=== PATIENT | female | born 1950 | race Caucasian/White ===

== ENCOUNTER → 2016-12-07 | Outpatient (CLI) | payer MEDICARE, BC ==
--- NOTE | 2016-12-07 16:45 | XR ---
EXAMINATION TYPE: XR lumbar spine 2 or 3V DATE OF EXAM: 12/07/2016 COMPARISON: NONE HISTORY: Back pain TECHNIQUE: 3 views FINDINGS: The vertebra have normal alignment. Posterior elements are intact. Abdominal aorta is ather omatous. Sacroiliac joints appear intact. There are clips from cholecystectomy. There is 20% anterior wedging of T12 vertebra. CONCLUSION: Compression fracture of T12 appears new compared to chest CT scan of 07/31/2013. This is probably an a cute fracture.
== END | disposition home or self-care (01) ==
LOC: RADMRIMAIN 16:08
PROVIDERS: ATTEND Physician Assistant
DX: S22.089A Unspecified fracture of T11-T12 vertebra, initial encounter for closed fracture (principal)
CPT/HCPCS: 72100

== ENCOUNTER 2017-08-05 11:43 | Inpatient (IN) | payer MEDICARE ==
[2017-08-05 12:07] LABS: Glucose,Whole Blood 77 mg/dL (75-99)
[2017-08-05] MEDS ORDERED: SODIUM CHLORIDE 0.9% 1,000 ML IV STA (12:09)
--- NOTE | 2017-08-05 12:20 | ED ---
General Adult HPI - General Chief complaint: Neuro Symptoms/Deficit Stated complaint: poss TIA Time Seen by Provider: 08/05/17 12:03 Source: patient, family, RN notes reviewed Mode of arrival: wheelchair Limitations: no limitations - History of Present Illness Initial comments: Patient is a pleasant 8 he 7-year-old female presenting to the emergency department with concerns of stroke. Onset of symptoms was or Saturday. Symptoms may have somewhat worsened yesterday or today. Patient did have a headache either or Saturday however states it was no worse than a routine headache. No headache at this time. Patient has noticed her speech has been off. Patient is having some difficulty using her right arm. Patient has having some difficulty with walking that started yesterday. Family states she is leaning towards the right side. - Related Data Allergies Allergy/AdvReac Type Severity Reaction Status Date / Time sulfamethoxazole Allergy Unknown Verified 08/05/17 11:45 [From Bactrim] trimethoprim [From Bactrim] Allergy Unknown Verified 08/05/17 11:45 Review of Systems ROS Statement: Those systems with pertinent positive or pertinent negative responses have been documented in the HPI. ROS Other: All systems not noted in ROS Statement are negative. Constitutional: Denies: fever Eyes: Denies: eye pain ENT: Denies: ear pain, throat pain Respiratory: Denies: cough Cardiovascular: Denies: chest pain Endocrine: Denies: fatigue Gastrointestinal: Denies: abdominal pain Genitourinary: Denies: dysuria Musculoskeletal: Denies: back pain Skin: Denies: rash Neurological: Reports: headache (Resolved), weakness, abnormal gait. Denies: confusion Past Medical History Past Medical History: CVA/TIA, Diabetes Mellitus, Hyperlipidemia, Hypertension, Thyroid Disorder Additional Past Medical History / Comment(s): throat cancer History of Any Multi-Drug Resistant Organisms: None Reported Past Surgical History: Cholecystectomy, Tonsillectomy Additional Past Surgical History / Comment(s): carotid endarectomy Past Psychological History: Anxiety, Depression Smoking Status: Former smoker Past Alcohol Use History: Rare Past Drug Use History: None Reported General Exam Limitations: no limitations General appearance: alert, in no apparent distress Head exam: Present: atraumatic Eye exam: Present: normal appearance, PERRL, EOMI ENT exam: Present: normal oropharynx Neck exam: Present: normal inspection Respiratory exam: Present: normal lung sounds bilaterally Cardiovascular Exam: Present: regular rate, normal rhythm, systolic murmur GI/Abdominal exam: Present: soft. Absent: tenderness Extremities exam: Present: normal inspection Neurological exam: Present: alert, CN II-XII intact (Except for right facial droop). Absent: motor sensory deficit Expanded Neurological exam: Present: protecting the airway, other (Slurred speech) Patient oriented to: Present: person, place, time Cranial nerves: EOM's Intact: Normal, Facial Sensation: Normal Cerebellar function: Finger to Nose: Abnormal Right, Abnormal Left Motor strength exam: RUE: 4, LUE: 5, RLE: 4, LLE: 5 Eye Response: (4) open spontaneously Motor Response: (6) obeys commands Verbal Response: (5) oriented Psychiatric exam: Present: normal affect, normal mood Skin exam: Present: normal color Course Vital Signs 08/05/17 11:45 Temperature 98 F Pulse Rate 99 Respiratory 20 Rate Blood Pressure 90/53 O2 Sat by Pulse 98 Oximetry EKG Findings - EKG Comments: EKG Findings:: Normal sinus rhythm 93. NC 16. QRS 152. QT 416. QTC 517. Bundle-branch block. Normal axis. Nonspecific ST-T. Medical Decision Making - Medical Decision Making Patient reevaluated and resting comfortably in bed, unchanged. Patient and family updated on results and plan. Case was discussed in detail with Dr. Goodman , who will admit for Dr. Yang. - Lab Data Result diagrams: 08/05/17 12:03 08/05/17 12:03 Lab Results 08/05/17 08/05/17 08/05/17 Range/Units 11:59 12:03 12:03 WBC 22.3 H (3.8-10.6) k/uL RBC 3.84 (3.80-5.40) m/uL Hgb 9.7 L (11.4-16.0) gm/dL Hct 29.1 L (34.0-46.0) % MCV 75.6 L (80.0-100.0) fL MCH 25.3 (25.0-35.0) pg MCHC 33.5 (31.0-37.0) g/dL RDW 14.4 (11.5-15.5) % Plt Count 374 (150-450) k/uL Neutrophils % 89 % Lymphocytes % 2 % Monocytes % 5 % Eosinophils % 1 % Basophils % 0 % Neutrophils # 19.8 H (1.3-7.7) k/uL Lymphocytes # 0.5 L (1.0-4.8) k/uL Monocytes # 1.2 H (0-1.0) k/uL Eosinophils # 0.3 (0-0.7) k/uL Basophils # 0.1 (0-0.2) k/uL Manual Slide Review Performed Toxic Granulation Present Poikilocytosis (manual Present Microcytosis Slight PT (9.0-12.0) sec INR (<1.2) APTT (22.0-30.0) sec Sodium (137-145) mmol/L Potassium (3.5-5.1) mmol/L Chloride (98-107) mmol/L Carbon Dioxide (22-30) mmol/L Anion Gap mmol/L BUN (7-17) mg/dL Creatinine (0.52-1.04) mg/dL Est GFR (CKD-EPI)AfAm (>60 ml/min/1.73 sqM) Est GFR (CKD-EPI)NonAf (>60 ml/min/1.73 sqM) Glucose (74-99) mg/dL POC Glucose (mg/dL) 77 (75-99) mg/dL POC Glu [employer] ID Marysol Long Calcium (8.4-10.2) mg/dL Total Bilirubin (0.2-1.3) mg/dL AST (14-36) U/L ALT (9-52) U/L Alkaline Phosphatase (38-126) U/L Total Creatine Kinase 604 H (30-135) U/L CK-MB (CK-2) 10.7 H* (0.0-2.4) ng/mL CK-MB (CK-2) Rel Index 1.8 Troponin I 0.048 H* (0.000-0.034) ng/mL Total Protein (6.3-8.2) g/dL Albumin (3.5-5.0) g/dL 08/05/17 08/05/17 Range/Units 12:03 12:03 WBC (3.8-10.6) k/uL RBC (3.80-5.40) m/uL Hgb (11.4-16.0) gm/dL Hct (34.0-46.0) % MCV (80.0-100.0) fL MCH (25.0-35.0) pg MCHC (31.0-37.0) g/dL RDW (11.5-15.5) % Plt Count (150-450) k/uL Neutrophils % % Lymphocytes % % Monocytes % % Eosinophils % % Basophils % % Neutrophils # (1.3-7.7) k/uL Lymphocytes # (1.0-4.8) k/uL Monocytes # (0-1.0) k/uL Eosinophils # (0-0.7) k/uL Basophils # (0-0.2) k/uL Manual Slide Review Toxic Granulation Poikilocytosis (manual Microcytosis PT 13.4 H (9.0-12.0) sec INR 1.4 H (<1.2) APTT 27.3 (22.0-30.0) sec Sodium 126 L (137-145) mmol/L Potassium 4.5 (3.5-5.1) mmol/L Chloride 92 L (98-107) mmol/L Carbon Dioxide 14 L (22-30) mmol/L Anion Gap 20 mmol/L BUN 41 H (7-17) mg/dL Creatinine 1.40 H (0.52-1.04) mg/dL Est GFR (CKD-EPI)AfAm 45 (>60 ml/min/1.73 sqM) Est GFR (CKD-EPI)NonAf 39 (>60 ml/min/1.73 sqM) Glucose 62 L (74-99) mg/dL POC Glucose (mg/dL) (75-99) mg/dL POC Glu [employer] ID Calcium 9.8 (8.4-10.2) mg/dL Total Bilirubin 1.8 H (0.2-1.3) mg/dL AST 55 H (14-36) U/L ALT 36 (9-52) U/L Alkaline Phosphatase 150 H (38-126) U/L Total Creatine Kinase (30-135) U/L CK-MB (CK-2) (0.0-2.4) ng/mL CK-MB (CK-2) Rel Index Troponin I (0.000-0.034) ng/mL Total Protein 6.3 (6.3-8.2) g/dL Albumin 3.5 (3.5-5.0) g/dL - Radiology Data Radiology results: report reviewed (Computed tomography scan the brain shows no acute hemorrhage. Encephalomalacia from old left-sided infarct is present.), image reviewed (Chest x-ray shows no acute process) Disposition Clinical Impression: Cerebrovascular accident, Hyponatremia, Renal insufficiency Disposition: ADMITTED IP TO THIS [facility] Condition: Serious Is patient prescribed a controlled substance at d/c from ED?: No Referrals: Nikko Yang DO [Primary Care Provider] - 1-2 days Decision Time: 14:52
--- NOTE | 2017-08-05 12:34 | CT ---
EXAMINATION TYPE: CT brain wo con DATE OF EXAM: 08/05/2017 COMPARISON: NONE HISTORY: Rt sided weakness, GALLAGHER, slurred speech CT DLP: 942.2 mGycm Automated exposure control for dose reduction was used. TECHNIQUE: CT scan of the head is performed without contrast. FINDINGS: There is no acute intracranial hemorrhage, mass effect, or midline shift identified. There is enceph alomalacia and CSF attenuated old lacunar injury of the left coker radiata, anterior limb of the lef t internal capsule, left external capsule, and lentiform nucleus at its anterior margin with volume l oss indicating chronicity as there is ex vacuo dilatation of the anterior horn the left lateral ventr icle. No suspicious extra axial fluid collection is present. The ventricles and sulci are within norm al limits in size. The globes are intact. The frontal sinuses are hypoplastic and the remaining visu alized sinuses are clear. Atherosclerosis is seen of the intracranial vasculature. IMPRESSION: No acute intracranial hemorrhage, mass effect, or midline shift is seen. Encephalomalacia from old le ft-sided infarct as described above.
[2017-08-05 12:43] LABS: INR 1.4 (<1.2)
[2017-08-05 12:44] LABS: Basophils # (A) 0.1 k/uL (0-0.2); Basophils % (A) 0 %; Eosinophils # (A) 0.3 k/uL (0-0.7); Eosinophils % (A) 1 %; HCT 29.1 % (34.0-46.0); HGB 9.7 gm/dL (11.4-16.0); Lymphocytes # (A) 0.5 k/uL (1.0-4.8); Lymphocytes % (A) 2 %; MCH 25.3 pg (25.0-35.0); MCHC 33.5 g/dL (31.0-37.0); MCV 75.6 fL (80.0-100.0); Microcytosis Slight; Monocytes # (A) 1.2 k/uL (0-1.0); Monocytes % (A) 5 %; Neutrophils # (A) 19.8 k/uL (1.3-7.7); Neutrophils % (A) 89 %; Partial Thromboplastin Time 27.3 sec (22.0-30.0); Platelet Count 374 k/uL (150-450); Prothrombin Time 13.4 sec (9.0-12.0); RBC 3.84 m/uL (3.80-5.40); RDW 14.4 % (11.5-15.5); WBC 22.3 k/uL (3.8-10.6)
[2017-08-05 12:46] LABS: Albumin 3.5 g/dL (3.5-5.0); Calcium 9.8 mg/dL (8.4-10.2); Potassium 4.5 mmol/L (3.5-5.1); Total Bilirubin 1.8 mg/dL (0.2-1.3); Total Protein 6.3 g/dL (6.3-8.2)
[2017-08-05 12:55] LABS: Poikilocytosis (M) Present; Toxic Granulation Present
--- NOTE | 2017-08-05 13:06 | XR ---
EXAMINATION TYPE: XR chest 2V DATE OF EXAM: 08/05/2017 COMPARISON: 07/05/2014 HISTORY: Altered mental status TECHNIQUE: Frontal and lateral views of the chest are obtained. FINDINGS: There is no focal air space opacity, pleural effusion, or pneumothorax seen. The cardiac silhouette size is within normal limits. The osseous structures are intact. Degenerative changes of the spine and shoulder joints are similar to the prior. IMPRESSION: No acute cardiopulmonary process.
[2017-08-05 13:15] LABS: Creatine Kinase MB 10.7 ng/mL (0.0-2.4)
[2017-08-05 13:16] LABS: Troponin I 0.048 ng/mL (0.000-0.034)
[2017-08-05] MEDS ORDERED: ASPIRIN 325 MG TAB PO STA (14:52)
--- NOTE | 2017-08-05 15:50 | US ---
EXAMINATION TYPE: US carotid duplex BILAT DATE OF EXAM: 08/05/2017 COMPARISON: NONE CLINICAL HISTORY: Stenosis: slurred speech x 4 days; prior left carotid endarterectomy 2012 per sanchez black. EXAM MEASUREMENTS: RIGHT: Peak Systolic Velocity (PSV) cm/sec ----- Right CCA: 56.6 ----- Right ICA: 421.0 ----- Right ECA: 208.8 ICA/CCA ratio: 7.4 RIGHT: End Diastole cm/sec ----- Right CCA: 23.1 ----- Right ICA: 175.1 ----- Right ECA: 55.5 LEFT: Peak Systolic Velocity (PSV) cm/sec ----- Left CCA: 75.8 ----- Left ICA: 68.5 ----- Left ECA: 82.7 prox ICA/CCA ratio: 0.9 LEFT: End Diastole cm/sec ----- Left CCA: 22.5 ----- Left ICA: 24.5 ----- Left ECA: 21.9 VERTEBRALS (direction of flow): Right Vertebral: Antegrade Left Vertebral: Antegrade Rhythm: Normal Abnormally elevated PSV and EDV is present in Right ICA bulb and proximally at irregular, hyperechoic wall plaque resulting in abnormally elevated Right ICA/ECA ratio; Abnormally elevated PSV >125cm/sec is also noted in Right ECA proximally at wall plaque. Dr Dunne, in EC, was notified of tech findings at exam's end. JJ IMPRESSION: 1. High-grade stenosis within the right internal carotid artery and carotid bulb with stenosis of gre ater than 70%. Further degree of occlusion could be assessed with nonemergent CTA prior to potential surgical intervention. 2. No hemodynamically significant stenosis within the left visualized internal carotid arterial syste m.
[2017-08-05] MEDS: SODIUM CHLORIDE 0.9% 1,000 ML IV SCH (15:51)
[2017-08-05 16:33] VITALS: BMI 31.1
[2017-08-05 16:45] LABS: Glucose,Whole Blood 71 mg/dL (75-99)
[2017-08-05] MEDS ORDERED: NAPROXEN 250 MG TAB PO PRN (17:43)
[2017-08-05] MEDS ORDERED: HYDROCHLOROTHIAZIDE 25 MG TAB PO PRN (17:43)
[2017-08-05] MEDS ORDERED: clonazePAM 1 MG TAB PO PRN (17:43)
[2017-08-05] MEDS ORDERED: LEVOFLOXACIN 500MG-D5W PMX 500 MG in DEXTROSE/WATER 1 100ML.BAG IVPB SCH (19:00)
[2017-08-05] MEDS: LEVOFLOXACIN 500MG-D5W PMX 500 MG in DEXTROSE/WATER 1 100ML.BAG IVPB SCH (20:26)
[2017-08-05] MEDS: AMITRIPTYLINE HCL 50 MG TAB PO SCH (20:27)
[2017-08-05] MEDS: HEPARIN SODIUM,PORCINE 5,000 UNIT/ML 1 ML VIAL SQ SCH (20:27)
[2017-08-05] MEDS: GABAPENTIN 100 MG CAP PO SCH (20:27)
[2017-08-05 20:37] LABS: Glucose,Whole Blood 72 mg/dL (75-99)
--- NOTE | 2017-08-05 20:57 | P.CNNES ---
History of Present Illness Consult date: 08/05/17 Reason for Consult: Patient admitted with right sided weakness and slurred speech. History of Present Illness: This patient is a 67-year-old right-handed white female who was brought into the emergency room at [facility] for evaluation of right-sided weakness and slurred speech. Patient states that her symptoms started on or Saturday of this past week. She did not think to come earlier as she felt her symptoms were going to get better. Apparently her sister came to see her as she noticed that when she was speaking to her on the phone she seemed to be disoriented and had severe slurring of her speech. The sister came over and found her on the floor leaning to her right side. She was able to assist her up to the chair and it was decided she should come to the emergency room for further evaluation. At home she was having difficulty not only with her speech but right-sided arm weakness. According to the patient she has a history of a stroke which she suffered in 2007. This did leave her with some residual right- sided weakness. She was brought into the emergency room at [facility] and was evaluated by Dr. Dunne. Computed tomography scan of the brain was ordered and results were reviewed. CAT scan report indicates no acute intracranial hemorrhage or mass effect. There was encephalomalacia on the left side of the brain felt to reflect and old infarct. This would: Side with her history of stroke in 2007. Patient states that she also has a history of underlying throat cancer which she is being followed up with Dr. Raymond. On further questioning she also has a history of having undergone right carotid endarterectomy in the past. She thinks Dr. Bishop was scar vascular surgeon at the time. The patient was sent for a carotid Doppler ultrasound today as well. Results indicate a high-grade stenosis of the right internal carotid artery and carotid bulb greater than 70%. Vascular surgery has been consulted. The patient is examined today on the medical floor. She is resting comfortably. She does appear to have some degree of dysphagia and dysarthric speech. According to the sister who was present at bedside this is a big change for her speech and language. She also noted that she was having difficulty using her right side at home. The patient has been taking 1 full adult aspirin daily for secondary stroke prevention. Her stroke risk factors include hypertension, hyperlipidemia, and diabetes mellitus. The patient is now admitted and neurology has been consulted for further evaluation and recommendations. Review of Systems Constitutional: Denies chills, Denies fever Eyes: denies blurred vision, denies pain Ears, nose, mouth and throat: Denies headache, Denies sore throat Cardiovascular: Denies chest pain, Denies shortness of breath Respiratory: Denies cough Gastrointestinal: Denies abdominal pain, Denies diarrhea, Denies nausea, Denies vomiting Genitourinary: Denies dysuria, Denies hematuria Musculoskeletal: Denies myalgias Integumentary: Denies pruritus, Denies rash Neurological: Reports aphasia, Reports change in mentation, Reports change in speech, Reports gait dysfunction, Reports headaches, Reports motor disturbance, Denies numbness, Denies weakness Psychiatric: Denies anxiety, Denies depression Endocrine: Denies fatigue, Denies weight change Past Medical History Past Medical History: CVA/TIA, Diabetes Mellitus, Hyperlipidemia, Hypertension, Thyroid Disorder Additional Past Medical History / Comment(s): throat cancer History of Any Multi-Drug Resistant Organisms: None Reported Past Surgical History: Cholecystectomy, Tonsillectomy Additional Past Surgical History / Comment(s): carotid endarectomy Past Anesthesia/Blood Transfusion Reactions: No Reported Reaction Past Psychological History: Anxiety, Depression Smoking Status: Former smoker Past Alcohol Use History: Rare Past Drug Use History: None Reported - Past Family History Mother Family Medical History: Cancer Additional Family Medical History / Comment(s): CERVICAL CA. Father Family Medical History: Myocardial Infarction (NM) Medications and Allergies Home Medications Medication Instructions Recorded Confirmed Type Amitriptyline HCl [Elavil] 50 mg PO HS 08/05/17 08/05/17 History Aspirin 325 mg PO DAILY 08/05/17 08/05/17 History FLUoxetine HCL [PROzac] 20 mg PO DAILY 08/05/17 08/05/17 History Gabapentin [Neurontin] 100 mg PO TID 08/05/17 08/05/17 History Gemfibrozil [Lopid] 600 mg PO AC-BID 08/05/17 08/05/17 History Hydrochlorothiazide [Hydrodiuril] 25 mg PO DAILY PRN 08/05/17 08/05/17 History Levothyroxine Sodium 125 mcg PO DAILY 08/05/17 08/05/17 History Lisinopril [Zestril] 5 mg PO DAILY 08/05/17 08/05/17 History Metoprolol Succinate [Toprol XL] 25 mg PO DAILY 08/05/17 08/05/17 History Naproxen [Naprosyn] 500 mg PO Q12HR PRN 08/05/17 08/05/17 History Pantoprazole Sodium 40 mg PO DAILY 08/05/17 08/05/17 History clonazePAM [Clonazepam] 2 mg PO BID PRN 08/05/17 08/05/17 History Allergies Allergy/AdvReac Type Severity Reaction Status Date / Time sulfamethoxazole Allergy Unknown Verified 08/05/17 15:22 [From Bactrim] trimethoprim [From Bactrim] Allergy Unknown Verified 08/05/17 15:22 Physical Examination - Vital Signs Vital Signs: Vital Signs Temp Pulse Pulse Resp BP BP Pulse Ox 08/05/17 16:20 96.7 F L 77 18 102/51 97 08/05/17 16:06 78 16 101/53 98 08/05/17 14:59 78 16 90/54 98 08/05/17 11:45 98 F 99 20 90/53 98 Intake and Output 08/05/17 08/05/17 08/05/17 06:59 14:59 22:59 Other: # Voids 1 Weight 77.111 kg 77.111 kg - Constitutional General appearance: average body habitus, cooperative - EENT EENT: PERRL, mucous membranes moist - Respiratory Respiratory: lungs clear, normal breath sounds - Cardiovascular Cardiovascular: regular rate, normal S1, normal S2 Extremities: no peripheral edema bilaterally - Gastrointestinal Gastrointestinal: normoactive bowel sounds - Integumentary Integumentary: normal - Neurologic Cranial nerve examination: PERRL, EOMI, VFF, V1/V2/V3 grossly intact, face symmetric, tongue midline, intact gag reflex, intact corneal reflex, normal palatal elevation Speech examination: intact Sensorimotor examination: intact Motor examination - right side: 3/5: biceps, triceps, wrist flexion, wrist extension, tag marker, hip flexors, knee extensors, dorsiflexion, toe extension (EHL) , plantarflexion Motor examination - left side: 4/5: biceps, triceps, wrist flexion, wrist extension, tag marker, hip flexors, knee extensors, dorsiflexion, toe extension (EHL) , plantarflexion Detailed sensory examination: intact Reflex and gait examination: intact Reflexes: 1+: ankle, bicep, knee, tricep - Musculoskeletal Musculoskeletal: no pain - Psychiatric Psychiatric: mood/affect appropriate, cooperative Results - Laboratory Findings CBC and BMP: 08/05/17 12:03 08/05/17 12:03 Abnormal Lab Findings: Abnormal Labs 08/05/17 08/05/17 08/05/17 12:03 12:03 12:03 WBC 22.3 H Hgb 9.7 L Hct 29.1 L MCV 75.6 L Neutrophils # 19.8 H Lymphocytes # 0.5 L Monocytes # 1.2 H PT INR Sodium 126 L Chloride 92 L Carbon Dioxide 14 L BUN 41 H Creatinine 1.40 H Glucose 62 L POC Glucose (mg/dL) Total Bilirubin 1.8 H AST 55 H Alkaline Phosphatase 150 H Total Creatine Kinase 604 H CK-MB (CK-2) 10.7 H* Troponin I 0.048 H* 08/05/17 08/05/17 12:03 16:42 WBC Hgb Hct MCV Neutrophils # Lymphocytes # Monocytes # PT 13.4 H INR 1.4 H Sodium Chloride Carbon Dioxide BUN Creatinine Glucose POC Glucose (mg/dL) 71 L Total Bilirubin AST Alkaline Phosphatase Total Creatine Kinase CK-MB (CK-2) Troponin I Assessment and Plan (1) Acute ischemic left MCA stroke Current Visit: Yes Status: Acute Code(s): I63.512 - CEREB INFRC D/T UNSP OCCLS OR STENOS OF LEFT MID CEREB ART SNOMED Code(s): 008534712 (2) Dysphasia Current Visit: Yes Status: Acute Code(s): R47.02 - DYSPHASIA SNOMED Code(s ): 11217932 (3) Hyponatremia Current Visit: Yes Status: Acute Code(s): E87.1 - HYPO-OSMOLALITY AND HYPONATREMIA SNOMED Code(s): 06086323 (4) Renal insufficiency Current Visit: Yes Status: Acute Code(s): N28.9 - DISORDER OF KIDNEY AND URETER, UNSPECIFIED SNOMED Code(s): 445339758 Plan: This patient is a 67-year-old female who was brought into the emergency room today for evaluation of slurred speech and right-sided weakness. Patient's sister found her at home and noted the significant change in her speech and language. She was also leaning and appeared to be weak on her right upper extremity. She was brought into the emergency room at [facility] and was evaluated by Dr. Dunne in the ER. She underwent a computed tomography scan of the brain results of which are noted above. Patient also underwent carotid Doppler ultrasound results are as noted above. The patient was up slowly admitted to the hospital for a full stroke evaluation. She has a history of having suffered a previous stroke in 2007. This left her with residual right-sided weakness which apparently had significantly improved over the years. She is now admitted for further stroke evaluation. Her neurological examination reveals her to have right-sided pronator drift as well as dysarthric speech. Her clinical history suggests possibility of a new area of infarction involving the left hemisphere of the brain. We have recommended a complete stroke evaluation for the patient including MRI of the brain. Vascular surgery has been consulted for further evaluation of significant carotid artery stenosis. We would recommend the patient be continued on current dose of aspirin daily for secondary stroke prevention pending her MRI results to be reviewed tomorrow. Her overall prognosis at this time remains guarded. We will continue close neurological follow-up for the patient during this admission. Time with Patient: Greater than 30
--- NOTE | 2017-08-05 21:06 | HP ---
HISTORY AND PHYSICAL CHIEF COMPLAINTS: Weakness of the right side of the body and possible stroke. HISTORY OF PRESENT ILLNESS: This 67-year-old woman with a past medical history of multiple medical problems including history of CVA, TIA, history of diabetes type 2, hypertension, hyperlipidemia, hypothyroidism, throat cancer, history of anxiety, depression being followed by Dr. Ary Yang in the outpatient setting was noted to have some change in mental status and significant weakness on the right side which progressed for the last couple of days. The patient also complains of headache and because of multiple symptomatology, patient was taken to [facility] and was admitted for further evaluation and treatment. The patient underwent a CT scan of the brain that showed significant encephalomalacia on the left side indicating old left-sided infarct and the patient admitted for further evaluation and treatment. A carotid Doppler study was also done which showed high-grade stenosis of the right internal carotid artery and carotid bulb and carotid stenosis greater than 70%. There is no history of fever, rigors or chills. No history of headache, loss of consciousness or seizures. The patient is slightly dysarthric at this time. The patient did have multiple lab abnormalities on admission at this time. PAST MEDICAL HISTORY: History of stroke, history of diabetes mellitus, hypertension, hyperlipidemia, hypothyroidism, history of throat cancer. MEDICATIONS: Prior to admission include home medications are: 1. Clonazepam 2 mg b.i.d. p.r.n. 2. Naprosyn 500 mg b.i.d. p.r.n. 3. Lopid 600 mg b.i.d. 4. Aspirin 320 mg daily. 5. Elavil 50 mg q.h.s. 6. Protonix 40 mg daily. 7. Toprol-XL 25 mg p.o. daily. 8. Zestril 5 mg. 9. Levothyroxine 125 mcg p.o. daily. 10.HydroDIURIL 25 mg p.o. daily p.r.n. 11.Neurontin 100 mg t.i.d. 12.Prozac 20 mg p.o. daily. ALLERGIES: BACTRIM. FAMILY HISTORY: History of cervical cancer in the family. SOCIAL HISTORY: Previous history of smoking. No history of current smoking. No alcohol intake. REVIEW OF SYSTEMS: ENT: No diminished vision, no diminished hearing. Otherwise, as mentioned earlier. Cardiovascular: No angina. Respiratory: No cough or hemoptysis. GI no nausea or vomiting. : No dysuria. Nervous System: As mentioned earlier. Allergies/Immunology: No asthma or hayfever. MUSCULOSKELETAL: As mentioned earlier. HEMATOLOGY/ONCOLOGY: No history of anemia. Endocrine: No history of diabetes, hypothyroidism. CONSTITUTIONAL: As mentioned earlier. Dermatology: Negative. Rheumatology: Negative. Psychiatry: As mentioned earlier. PHYSICAL EXAMINATION: Alert and oriented x2. Dysarthric. Pulse 77. Blood pressure 102/51, respiration 18, temperature 98.7, pulse ox 97% on room air. HEENT: Conjunctivae normal. Oral mucosa moist. NECK is no jugular venous distention. No carotid bruit. No lymph node enlargement. CARDIOVASCULAR SYSTEM: S1, S2 muffled. RESPIRATORY: Breath sounds diminished in the bases. A few scattered rhonchi. No crackles. ABDOMEN: Soft, nontender. No mass palpable. LEGS: No edema and no swelling. NERVOUS SYSTEM: Higher functions as mentioned earlier, patient is slightly drowsy and slightly dysarthric. Otherwise, moves all 4 limbs but minimal weakness on the right side appreciated. Slurring of speech also present. Gait not tested. SKIN no ulcers, rashes or bleeding. LYMPHATICS: No lymph nodes palpable in the neck, axillae or groin. JOINTS: No active deforming arthropathy. LAB STUDIES: WBC 20.3, hemoglobin is 10.7, creatinine is 1.4. ASSESSMENT: 1. Possible acute stroke involving the left hemisphere causing right-sided weakness. 2. Change in mental status, metabolic encephalopathy. 3. Old left stroke. 4. High-grade stenosis of the right internal carotid artery at up to 70%. 5. History of diabetes type 2. 6. Hypertension. 7. Hyperlipidemia. 8. Increased WBC. 9. Hypothyroidism. 10.History of throat cancer. 11.History of cholecystectomy. 12.History of anxiety/depression. 13.History of carotid endarterectomy. 14.Remote history of nicotine dependence. RECOMMENDATIONS AND DISCUSSION: In this 67-year-old woman who presented with multiple complex medical issues, we will monitor the patient closely. Continue the current medications, management and symptomatic treatment. I would recommend antiplatelet agents. Neurology consultation. I would also recommend empiric antibiotics. Neuro checks. The overall prognosis is extremely guarded because of multiple complex medical issues and DVT prophylaxis. Further recommendations to follow. I would also recommend UA with micro also. A copy of dictation being forwarded to Dr. Ary Yang. Medication reconciliation. See orders for details. Once again, the prognosis guarded. We will also get a vascular consultation for carotid stenosis as well. MMODL / IJN: [id number] /
[2017-08-05 21:47] LABS: Appearance,Urine Turbid (Clear); Bilirubin,Urine Negative (Negative); Blood,Urine Large (Negative); Color,Urine Yellow; Glucose,Urine (UA) Negative (Negative); Ketones,Urine Negative (Negative); Leukocyte Esterase,Urine Large (Negative); Nitrite,Urine Negative (Negative); Protein,Urine 1+ (Negative); RBC,Urine 59 /hpf (0-5); Specific Gravity,Urine 1.011 (1.001-1.035); Urobilinogen,Urine <2.0 mg/dL (<2.0); WBC,Urine >182 /hpf (0-5)
[2017-08-05 21:56] LABS: Amphetamine Screen,Urine Not Detected (NotDetected); Barbiturate Screen,Urine Not Detected (NotDetected); Benzodiazepines Screen,Urine Not Detected (NotDetected); Cocaine Screen,Urine Not Detected (NotDetected); Methadone Screen, Urine Not Detected (NotDetected); Opiate Screen,Urine Detected (NotDetected); Oxycodone Screen, Urine Not Detected (NotDetected); Phencyclidine Screen,Urine Not Detected (NotDetected); Tricyclic Antidepressant,Urine Detected (NotDetected); Urn Cannabinoid Scrn Not Detected (NotDetected)
[2017-08-06 00:25] LABS: Troponin I 0.033 ng/mL (0.000-0.034)
[2017-08-06 00:26] LABS: Creatine Kinase MB 9.3 ng/mL (0.0-2.4)
[2017-08-06 05:46] LABS: Glucose,Whole Blood 71 mg/dL (75-99)
[2017-08-06 06:22] LABS: Basophils % (A) 0 %; Eosinophils # (A) 0.3 k/uL (0-0.7); Eosinophils % (A) 2 %; HGB 8.8 gm/dL (11.4-16.0); Lymphocytes # (A) 0.5 k/uL (1.0-4.8); Lymphocytes % (A) 3 %; MCH 25.1 pg (25.0-35.0); MCHC 32.4 g/dL (31.0-37.0); MCV 77.4 fL (80.0-100.0); Mean Platelet Volume 6.4; Microcytosis Slight; Monocytes % (A) 6 %; Neutrophils # (A) 15.9 k/uL (1.3-7.7); Neutrophils % (A) 86 %; Platelet Count 312 k/uL (150-450); RBC 3.49 m/uL (3.80-5.40); RDW 15.3 % (11.5-15.5); WBC 18.4 k/uL (3.8-10.6)
[2017-08-06 06:40] LABS: Potassium 4.2 mmol/L (3.5-5.1)
[2017-08-06] MEDS: SODIUM CHLORIDE 0.9% 1,000 ML IV SCH ×2 (09:20→16:18)
--- NOTE | 2017-08-06 11:38 | P.CRDCN ---
History of Present Illness Consult date: 08/06/17 Requesting physician: Mani Redding Reason for Consult (text): CVA Chief complaint: Slurring of speech and right-sided weakness History of present illness: This is a 67-year-old female with history of prior CVA, diabetes, hypertension, hyperlipidemia, hypothyroidism, throat cancer, depression, who presented to the hospital with symptoms of significant expressive aphasia, slurring of speech, and right-sided weakness. Apparently the symptoms have been going on for the past couple of days prior to her admission here. Patient was also complaining of headache. CAT scan of the brain was performed which revealed significant encephalomalacia on the left side indicating old left- sided infarct and the patient was admitted for further evaluation and treatment. A carotid Doppler study was also performed which revealed high- grade stenosis of the right internal carotid artery and carotid, carotid stenosis greater than 70%. Cardiology consultation was requested to rule out cardiac source for her CVA. The pressure on arrival here 90/50, heart rate in the 90s, 98% on room air. White blood cell count 22.3 on arrival, 18.4 this morning. Hemoglobin 8.8, platelet count 312, sodium on admission 126, 127 this morning. Potassium 4.2, BUN 42, creatinine 1.6. Troponin 0.04, 0.03. Urine drug screen positive for opiates and antidepressants. At the time of my examination this morning, physical therapy had just been in working with the patient, she continues to have significant right-sided weakness as well as expressive aphasia and slurring of speech. Her EKG shows a normal sinus rhythm with a left bundle-branch block pattern. Past Medical History Past Medical History: CVA/TIA, Diabetes Mellitus, Hyperlipidemia, Hypertension, Thyroid Disorder Additional Past Medical History / Comment(s): throat cancer History of Any Multi-Drug Resistant Organisms: None Reported Past Surgical History: Cholecystectomy, Tonsillectomy Additional Past Surgical History / Comment(s): carotid endarectomy Past Anesthesia/Blood Transfusion Reactions: No Reported Reaction Past Psychological History: Anxiety, Depression Smoking Status: Former smoker Past Alcohol Use History: Rare Past Drug Use History: None Reported - Past Family History Mother Family Medical History: Cancer Additional Family Medical History / Comment(s): CERVICAL CA. Father Family Medical History: Myocardial Infarction ([place]) Medications and Allergies Home Medications Medication Instructions Recorded Confirmed Type Amitriptyline HCl [Elavil] 50 mg PO HS 08/05/17 08/05/17 History Aspirin 325 mg PO DAILY 08/05/17 08/05/17 History FLUoxetine HCL [PROzac] 20 mg PO DAILY 08/05/17 08/05/17 History Gabapentin [Neurontin] 100 mg PO TID 08/05/17 08/05/17 History Gemfibrozil [Lopid] 600 mg PO AC-BID 08/05/17 08/05/17 History Hydrochlorothiazide [Hydrodiuril] 25 mg PO DAILY PRN 08/05/17 08/05/17 History Levothyroxine Sodium 125 mcg PO DAILY 08/05/17 08/05/17 History Lisinopril [Zestril] 5 mg PO DAILY 08/05/17 08/05/17 History Metoprolol Succinate [Toprol XL] 25 mg PO DAILY 08/05/17 08/05/17 History Naproxen [Naprosyn] 500 mg PO Q12HR PRN 08/05/17 08/05/17 History Pantoprazole Sodium 40 mg PO DAILY 08/05/17 08/05/17 History clonazePAM [Clonazepam] 2 mg PO BID PRN 08/05/17 08/05/17 History Allergies Allergy/AdvReac Type Severity Reaction Status Date / Time sulfamethoxazole Allergy Unknown Verified 08/05/17 15:22 [From Bactrim] trimethoprim [From Bactrim] Allergy Unknown Verified 08/05/17 15:22 Physical Exam Vitals: Vital Signs Temp Pulse Pulse Resp BP BP Pulse Ox 08/06/17 09:10 93 18 08/06/17 09:00 96.9 F L 93 18 98/45 97 08/06/17 04:00 97.7 F 90 18 100/51 95 08/06/17 00:00 97.8 F 83 18 90/51 93 L 08/05/17 20:00 97.0 F L 80 18 94/56 96 08/05/17 16:20 96.7 F L 77 18 102/51 97 08/05/17 16:06 78 16 101/53 98 08/05/17 14:59 78 16 90/54 98 08/05/17 11:45 98 F 99 20 90/53 98 Intake and Output 08/05/17 08/06/17 08/06/17 22:59 06:59 14:59 Intake Total 600 Output Total 300 Balance -300 600 Intake: Intake, IV Titration 600 Amount Sodium Chloride 0.9% 1, 600 000 ml @ 75 mls/hr IV . [id number] [facility] Rx#:[id number] Output: Urine 300 Other: Voiding Method Bedside Commode Bedside Commode Bedside Commode # Voids 1 1 Weight 77.111 kg 74.6 kg PHYSICAL EXAMINATION: GENERAL: HEENT: Head is atraumatic, normocephalic. Pupils equal, round. Sclera anicteric. Conjunctiva are clear. Mucous membranes of the mouth are moist. Neck is supple. There is no elevated jugular venous pressure.] bruit is heard. HEART EXAMINATION: Heart S1, S2 normal. No murmur or gallop heard. CHEST EXAMINATION: Lungs are clear to auscultation and precussion. No chest wall tenderness is noted on palpation or with deep breathing. ABDOMEN: Soft, nontender. Bowel sounds are heard. No organomegaly noted. EXTREMITIES: 2+ peripheral pulses with no evidence of peripheral edema and no calf tenderness noted. NEUROLOGIC patient is awake, alert and oriented -3. Positive right sided weakness with mild slurring of speech. . Results 08/06/17 06:02 08/06/17 06:02 Cardiac Enzymes 08/05/17 08/05/17 08/05/17 Range/Units 12:03 12:03 23:18 AST 55 H (14-36) U/L CK-MB (CK-2) 10.7 H* 9.3 H* (0.0-2.4) ng/mL Troponin I 0.048 H* 0.033 (0.000-0.034) ng/mL Coagulation 08/05/17 Range/Units 12:03 PT 13.4 H (9.0-12.0) sec APTT 27.3 (22.0-30.0) sec Lipids 08/06/17 Range/Units 06:02 Triglycerides 215 H (<150) mg/dL Cholesterol 95 (<200) mg/dL HDL Cholesterol 12 L (40-60) mg/dL CBC 08/05/17 08/06/17 Range/Units 12:03 06:02 WBC 22.3 H 18.4 H (3.8-10.6) k/uL RBC 3.84 3.49 L (3.80-5.40) m/uL Hgb 9.7 L 8.8 L (11.4-16.0) gm/dL Hct 29.1 L 27.0 L (34.0-46.0) % Plt Count 374 312 (150-450) k/uL Comprehensive Metabolic Panel 08/05/17 08/06/17 Range/Units 12:03 06:02 Sodium 126 L 127 L (137-145) mmol/L Potassium 4.5 4.2 (3.5-5.1) mmol/L Chloride 92 L 96 L (98-107) mmol/L Carbon Dioxide 14 L 15 L (22-30) mmol/L BUN 41 H 42 H (7-17) mg/dL Creatinine 1.40 H 1.60 H (0.52-1.04) mg/dL Glucose 62 L 60 L (74-99) mg/dL Calcium 9.8 9.0 (8.4-10.2) mg/dL AST 55 H (14-36) U/L ALT 36 (9-52) U/L Alkaline Phosphatase 150 H (38-126) U/L Total Protein 6.3 (6.3-8.2) g/dL Albumin 3.5 (3.5-5.0) g/dL Current Medications Generic Name Dose Route Start Last Admin Trade Name Freq PRN Reason Stop Dose Admin Amitriptyline HCl 50 mg 08/05/17 21:00 08/05/17 20:27 Elavil PO 50 mg HS NORMAN Administration Aspirin 325 mg 08/06/17 09:00 Aspirin PO DAILY NORMAN Clonazepam 2 mg 08/05/17 17:43 Klonopin PO BID PRN Anxiety Fluoxetine HCl 20 mg 08/06/17 09:00 Prozac PO DAILY NORMAN Gabapentin 100 mg 08/05/17 22:00 08/05/17 20:27 Neurontin PO 100 mg TID NORMAN Administration Gemfibrozil 600 mg 08/06/17 07:30 Lopid PO AC-BID NORMAN Heparin Sodium (Porcine) 5,000 unit 08/05/17 21:00 08/05/17 20:27 Heparin SQ 5,000 unit Q12HR NORMAN Administration Hydrochlorothiazide 25 mg 08/05/17 17:43 Hydrodiuril PO DAILY PRN Edema Sodium Chloride 1,000 mls @ 75 mls/hr 08/05/17 15:00 08/06/17 09:20 Saline 0.9% IV Not Given .[id number] NORMAN Levofloxacin 500 mg/ IV 100 mls @ 100 mls/hr 08/05/17 20:00 08/05/17 20:26 Solution IVPB 100 mls/hr Q24H NORMAN Administration Levothyroxine Sodium 125 mcg 08/06/17 06:30 Synthroid PO 0630 NORMAN Lisinopril 5 mg 08/06/17 09:00 Zestril PO DAILY NORMAN Metoprolol Succinate 25 mg 08/06/17 09:00 Toprol Xl PO DAILY NORMAN Naproxen 500 mg 08/05/17 17:43 Naprosyn PO Q12HR PRN Pain Pantoprazole Sodium 40 mg 08/06/17 09:00 Protonix PO DAILY NORMAN Intake and Output 08/05/17 08/06/17 08/06/17 22:59 06:59 14:59 Intake Total 600 Output Total 300 Balance -300 600 Intake: Intake, IV Titration 600 Amount Sodium Chloride 0.9% 1, 600 000 ml @ 75 mls/hr IV . [id number] [facility] Rx#:[id number] Output: Urine 300 Other: Voiding Method Bedside Commode Bedside Commode Bedside Commode # Voids 1 1 Weight 77.111 kg 74.6 kg 08/06/17 06:02 08/06/17 06:02 EKG Interpretations (text) EKG shows a normal sinus rhythm with a right bundle branch block pattern Assessment and Plan Plan: Assessment and plan #1 symptoms of right-sided weakness and slurring of speech, possible acute left hemispheric CVA. Carotid Doppler study showed high-grade stenosis of the right internal carotid artery #2 history of prior CVA #3 hypertension #4 hyperlipidemia #5 hypothyroidism #6 diabetes #7 depression and anxiety Plan We will obtain an echocardiogram with Doppler study. We will also continue to monitor the patient for any evidence of atrial fibrillation. Further recommendations to follow. DNP note has been reviewed, I agree with a documented findings and plan of care. Patient was seen and examined.
[2017-08-06 11:40] LABS: Glucose,Whole Blood 64 mg/dL (75-99)
[2017-08-06 11:44] LABS: Glucose,Whole Blood 63 mg/dL (75-99)
[2017-08-06 11:55] LABS: Glucose,Whole Blood 81 mg/dL (75-99)
--- NOTE | 2017-08-06 12:06 | ECHOF ---
Referral Reason:Thrombus MEASUREMENTS -------- HEIGHT: 157.5 cm WEIGHT: 74.4 kg BP: 100/51 IVSd: 1.3 cm (0.6 - 1.1) LVIDd: 3.2 cm (3.9 - 5.3) LVPWd: 1.3 cm (0.6 - 1.1) IVSs: 1.6 cm LVIDs: 2.5 cm LVPWs: 1.3 cm LAESV Index (A-L): 27.41 ml/m Ao Diam: 3.0 cm (2.0 - 3.7) AV Cusp: 1.6 cm (1.5 - 2.6) LA Diam: 2.8 cm (2.7 - 3.8) MV E Doc: 1.02 m/s MV DecT: 355 ms MV A Doc: 1.18 m/s MV E/A Ratio: 0.87 AV maxP.67 mmHg AV meanP.07 mmHg FINDINGS -------- BBB This was a technically adequate study. The left ventricular size is normal. There is mild concentric left ventricular hypertrophy. Overa ll left ventricular systolic function is low-normal with, an EF between 50 - 55 %. The right ventricle is normal in size and function. Normal LA size by volume 22+/-6 ml/m2. The right atrium is normal in size. Aortic valve is trileaflet and is mildly thickened. There is no evidence of aortic regurgitation. There is no evidence of aortic stenosis. The mitral valve leaflets are mildly thickened. Mild mitral annular calcification present. Mild m itral regurgitation is present. Trace tricuspid regurgitation present. Right ventricular systolic pressure is normal at < 35 mmHg. There is no evidence of pulmonary hypertension. The pulmonic valve was not well visualized. The aortic root size is normal. Normal inferior vena cava with normal inspiratory collapse consistent with estimated right atrial pre ssure of 5 mmHg. There is no pericardial effusion. CONCLUSIONS -------- 1. BBB 2. This was a technically adequate study. 3. The left ventricular size is normal. 4. There is mild concentric left ventricular hypertrophy. 5. Overall left ventricular systolic function is low-normal with, an EF between 50 - 55 %. 6. Normal LA size by volume 22+/-6 ml/m2. 7. Aortic valve is trileaflet and is mildly thickened. 8. The mitral valve leaflets are mildly thickened. 9. Mild mitral annular calcification present. 10. Mild mitral regurgitation is present. 11. Trace tricuspid regurgitation present. 12. Right ventricular systolic pressure is normal at < 35 mmHg. 13. There is no evidence of pulmonary hypertension. 14. The pulmonic valve was not well visualized. 15. The aortic root size is normal. 16. There is no pericardial effusion. IT SERVICE CONTINUITY SUPERVISOR: Isra Lopez RDCS
--- NOTE | 2017-08-06 12:54 | MR ---
MR brain without contrast HISTORY: New left hemispheric stroke Multiplanar multisequence imaging through the brain Correlation to CT brain 28/10/2017 Again identified is encephalomalacia in the left frontal brain as previously noted corresponding ex v acuo phenomenon of the left lateral ventricle. There is no restricted diffusion to suggest subacute i schemia. There is no hemorrhage or hydrocephalus. Corpus callosum, cervical medullary junction, cereb ellopontine angles are within normal limits. There is a partially empty sella. The orbits show symmet machelle appearance. There are normal vascular flow voids present. Scattered hyperintensities are present within the subcortical, periventricular, pericallosal and ric-infarct regions compatible with scolio sis, probable chronic small vessel ischemia. Some inflammatory change also noted in the mastoid air c ells on the right. IMPRESSION: Age-related changes of atrophy and probable chronic small vessel ischemia. Evidence of pr evious infarction, cerebrovascular accident.
--- NOTE | 2017-08-06 14:40 | CONS ---
CONSULTATION This is a 67-year-old female, well known to me from the past. The patient had a left carotid endarterectomy done by me in 2007. The patient was in the office on March of 2017 and ultrasound showed left side 16 to 49, right side 50-70% stenosis. Patient had an episode of slurred speech and right hemiparesis with complete recovery. Patient had a CT scan of the brain which showed old infarct and also patient MRI which also showed old infarct with no evidence of acute intracranial hemorrhage or for any mass effect. The patient had ultrasound done at [facility] which showed right side is 70% stenosis, left side is 16 in 49% stenosis. SURGICAL HISTORY: Patient had a left carotid endarterectomy done in the past. The patient also was diagnosed with throat cancer in 2014 and she had the right side lymph node dissection and radiation to the neck in 2014. MEDICAL HISTORY: History of hypertension, diabetes, hyperlipidemia. EXAMINATION: Patient was seen in her room. NECK: Supple. She has a scar on the both side. T CENTRAL NERVOUS SYSTEM: Patient still has some slurred speech. Her motor functions are improving. CHEST: Clear to auscultation. ABDOMEN: Soft. Femoral pulses are present. PLAN: The patient was seen by neurology and the patient on antiplatelet therapy. Her symptoms came mostly from the left side affecting speech and right hemiparesis, but left side has no hemodynamically significant stenosis. The right side has 50-70% stenosis by ultrasound from my office and ultrasound at [facility] also showed 70% stenosis on the right side. I have discussed the case with the family and I will discuss with the Medicine and Neurology. This patient has a right-sided high-grade stenosis. The patient is asymptomatic from right side and the patient had radiation to the neck. Surgical indication is not indicated because of the radiation to the neck. If she needs right-sided carotid corrected she will need a carotid stent placement that will be done in at a tertiary center. We can arrange for that. We will follow with you. Thank you very much this consultation. MMODL / IJN: [id number] /
[2017-08-06 15:50] LABS: Hemoglobin A1C 5.6 % (4.0-6.0)
--- NOTE | 2017-08-06 16:07 | P.CONS ---
History of Present Illness - Chief Complaint Gait disturbance - History of Present Illness I had the opportunity to see patient for inpatient rehab consultation with regard to gait disturbance. She was admitted to [facility] August 05 with right- sided weakness, slurring of speech, found on floor by sister. Seen in consultation by Dr. Mita Mcclure and cardiology. Head CT demonstrates encephalomalacia and old left-sided infarct. Chest x-ray negative. Carotid Doppler with right internal carotid stenosis 70%. MRI with age-related and small vessel change only. PT reports moderate assistance for bed mobility and minimal assistance for transfers and gait 30 feet with roller walker. OT reports minimal assistance for upper dressing and moderate assistance for lower dressing, bathing, toileting, functional mobility and transfers. Speech therapy assessed swallow and recommend pured and thin liquids. Also significant cognitive deficits noted. Previous functional history as elicited from patient: 65-year-old right-handed white female who is single lives in one floor home with friend. Describes can be independent with own cooking, laundry, driving, shower. Denies tobacco or alcohol. States regular doctors Dr. Yang. Corroborated by facesheet. Review of Systems Review of systems: ENT: Denies sneezes or discharge. Eyes: Denies discharge or photophobia. Cardiac: Denies chest pain or palpitation. Pulmonary: Denies cough or shortness of breath. Breast: Denies discharge or lumps. Gastrointestinal: Denies nausea, emesis, constipation, diarrhea. Genitourinary: Denies discharge or frequency. Musculoskeletal: Denies muscle or bone aches. Neurologic: Confusion. Right-sided weakness reported. Endocrine: Denies shakes or sweats. Oncology: Denies cancers. Dermatologic: Denies rash, itching, pruritus. ALLERGY/immunology: Denies sneezes, rashes. Past Medical History Past Medical History: CVA/TIA, Diabetes Mellitus, Hyperlipidemia, Hypertension, Thyroid Disorder Additional Past Medical History / Comment(s): throat cancer History of Any Multi-Drug Resistant Organisms: None Reported Past Surgical History: Cholecystectomy, Tonsillectomy Additional Past Surgical History / Comment(s): carotid endarectomy Past Anesthesia/Blood Transfusion Reactions: No Reported Reaction Past Psychological History: Anxiety, Depression Smoking Status: Former smoker Past Alcohol Use History: Rare Past Drug Use History: None Reported - Past Family History Mother Family Medical History: Cancer Additional Family Medical History / Comment(s): CERVICAL CA. Father Family Medical History: Myocardial Infarction (PR) Medications and Allergies Home Medications Medication Instructions Recorded Confirmed Type Amitriptyline HCl [Elavil] 50 mg PO HS 08/05/17 08/05/17 History Aspirin 325 mg PO DAILY 08/05/17 08/05/17 History FLUoxetine HCL [PROzac] 20 mg PO DAILY 08/05/17 08/05/17 History Gabapentin [Neurontin] 100 mg PO TID 08/05/17 08/05/17 History Gemfibrozil [Lopid] 600 mg PO AC-BID 08/05/17 08/05/17 History Hydrochlorothiazide [Hydrodiuril] 25 mg PO DAILY PRN 08/05/17 08/05/17 History Levothyroxine Sodium 125 mcg PO DAILY 08/05/17 08/05/17 History Lisinopril [Zestril] 5 mg PO DAILY 08/05/17 08/05/17 History Metoprolol Succinate [Toprol XL] 25 mg PO DAILY 08/05/17 08/05/17 History Naproxen [Naprosyn] 500 mg PO Q12HR PRN 08/05/17 08/05/17 History Pantoprazole Sodium 40 mg PO DAILY 08/05/17 08/05/17 History clonazePAM [Clonazepam] 2 mg PO BID PRN 08/05/17 08/05/17 History Allergies Allergy/AdvReac Type Severity Reaction Status Date / Time sulfamethoxazole Allergy Unknown Verified 08/05/17 15:22 [From Bactrim] trimethoprim [From Bactrim] Allergy Unknown Verified 08/05/17 15:22 Physical Exam Vitals: Vital Signs Temp Pulse Pulse Resp BP BP Pulse Ox 08/06/17 12:00 96.9 F L 97 18 142/112 95 08/06/17 09:10 93 18 08/06/17 09:00 96.9 F L 93 18 98/45 97 08/06/17 04:00 97.7 F 90 18 100/51 95 08/06/17 00:00 97.8 F 83 18 90/51 93 L 08/05/17 20:00 97.0 F L 80 18 94/56 96 08/05/17 16:20 96.7 F L 77 18 102/51 97 08/05/17 16:06 78 16 101/53 98 Intake and Output 08/06/17 08/06/17 08/06/17 06:59 14:59 22:59 Intake Total 600 Balance 600 Intake: Intake, IV Titration 600 Amount Sodium Chloride 0.9% 1, 600 000 ml @ 75 mls/hr IV . [id number] [facility] Rx#:[id number] Other: Voiding Method Bedside Commode Bedside Commode # Voids 1 Weight 74.6 kg Skin: Good color, texture, turgor. General: Medium build and comfortable appearance. Head: Normocephalic, atraumatic. Eyes: Symmetric. Pupils equal round. Ears: Symmetric. Hearing within normal limits. Mouth: Clear. Neck: Supple. Carotid without bruit. Cardiac: Regular rate and rhythm. Lungs: Clear anteriorly and posteriorly. Abdomen: Soft active nontender. Extremities: Normal tone. Neurological: Mental status: Alert, cooperative, pleasant. Confusion noted. Cranial nerves: Symmetric facial tone and trapezius. Motor: Active movement all 4 limbs. Sensation: Intact throughout. DTRs: Symmetric and equal throughout. Mobility: Sits and stands with minimal to moderate assistance and verbal cueing. Results CBC & Chem 7: 08/06/17 06:02 08/06/17 06:02 Labs: Abnormal Lab Results - Last 24 Hours (Table) 08/05/17 08/05/17 08/05/17 Range/Units 16:42 20:35 21:25 WBC (3.8-10.6) k/uL RBC (3.80-5.40) m/uL Hgb (11.4-16.0) gm/dL Hct (34.0-46.0) % MCV (80.0-100.0) fL Neutrophils # (1.3-7.7) k/uL Lymphocytes # (1.0-4.8) k/uL Sodium (137-145) mmol/L Chloride (98-107) mmol/L Carbon Dioxide (22-30) mmol/L BUN (7-17) mg/dL Creatinine (0.52-1.04) mg/dL Glucose (74-99) mg/dL POC Glucose (mg/dL) 71 L 72 L (75-99) mg/dL Total Creatine Kinase (30-135) U/L CK-MB (CK-2) (0.0-2.4) ng/mL Triglycerides (<150) mg/dL HDL Cholesterol (40-60) mg/dL Urine Appearance Turbid H (Clear) Urine Protein 1+ H (Negative) Urine Blood Large H (Negative) Ur Leukocyte Esterase Large H (Negative) Urine RBC 59 H (0-5) /hpf Urine WBC >182 H (0-5) /hpf Urine WBC Clumps Many H (None) /hpf Urine Opiates Screen Detected H (NotDetected) U Tricyclic Antidepress Detected H (NotDetected) 08/05/17 08/06/17 08/06/17 Range/Units 23:18 05:45 06:02 WBC (3.8-10.6) k/uL RBC (3.80-5.40) m/uL Hgb (11.4-16.0) gm/dL Hct (34.0-46.0) % MCV (80.0-100.0) fL Neutrophils # (1.3-7.7) k/uL Lymphocytes # (1.0-4.8) k/uL Sodium 127 L (137-145) mmol/L Chloride 96 L (98-107) mmol/L Carbon Dioxide 15 L (22-30) mmol/L BUN 42 H (7-17) mg/dL Creatinine 1.60 H (0.52-1.04) mg/dL Glucose 60 L (74-99) mg/dL POC Glucose (mg/dL) 71 L (75-99) mg/dL Total Creatine Kinase 546 H (30-135) U/L CK-MB (CK-2) 9.3 H* (0.0-2.4) ng/mL Triglycerides 215 H (<150) mg/dL HDL Cholesterol 12 L (40-60) mg/dL Urine Appearance (Clear) Urine Protein (Negative) Urine Blood (Negative) Ur Leukocyte Esterase (Negative) Urine RBC (0-5) /hpf Urine WBC (0-5) /hpf Urine WBC Clumps (None) /hpf Urine Opiates Screen (NotDetected) U Tricyclic Antidepress (NotDetected) 08/06/17 08/06/17 08/06/17 Range/Units 06:02 11:29 11:40 WBC 18.4 H (3.8-10.6) k/uL RBC 3.49 L (3.80-5.40) m/uL Hgb 8.8 L (11.4-16.0) gm/dL Hct 27.0 L (34.0-46.0) % MCV 77.4 L (80.0-100.0) fL Neutrophils # 15.9 H (1.3-7.7) k/uL Lymphocytes # 0.5 L (1.0-4.8) k/uL Sodium (137-145) mmol/L Chloride (98-107) mmol/L Carbon Dioxide (22-30) mmol/L BUN (7-17) mg/dL Creatinine (0.52-1.04) mg/dL Glucose (74-99) mg/dL POC Glucose (mg/dL) 64 L 63 L (75-99) mg/dL Total Creatine Kinase (30-135) U/L CK-MB (CK-2) (0.0-2.4) ng/mL Triglycerides (<150) mg/dL HDL Cholesterol (40-60) mg/dL Urine Appearance (Clear) Urine Protein (Negative) Urine Blood (Negative) Ur Leukocyte Esterase (Negative) Urine RBC (0-5) /hpf Urine WBC (0-5) /hpf Urine WBC Clumps (None) /hpf Urine Opiates Screen (NotDetected) U Tricyclic Antidepress (NotDetected) Microbiology - Last 24 Hours (Table) 08/05/17 21:25 Urine Culture - Preliminary Urine,Clean Catch Chest x-ray: report reviewed (Negative.) CT Scan - head: report reviewed (Encephalomalacia and old left-sided infarct.) MRI - head: report reviewed (Age-related atrophy and small vessel change.) Assessment and Plan (1) Acute ischemic left MCA stroke Current Visit: Yes Status: Acute Code(s): I63.512 - CEREB INFRC D/T UNSP OCCLS OR STENOS OF LEFT MID CEREB ART SNOMED Code(s): 491586248 Plan: Impression: 1. Gait disturbance. 2. Acute left MCA infarct result in right hemiparesthesias and dysarthria and dysphagia. 3. Hypertension. 4. Dyslipidemia. 5. Diabetes. 6. Thyroid. Comments and plan: At this time PT, OT, [facility] ongoing. All note safety concerns and parent ability tolerate and benefit from therapies. We will of course consider for inpatient rehab when medical workup complete.
[2017-08-06] MEDS: GEMFIBROZIL 600 MG TAB PO SCH ×2 (16:15→16:17)
[2017-08-06] MEDS: FLUoxetine HCL 20 MG CAP PO SCH (16:15)
[2017-08-06] MEDS: LEVOTHYROXINE 125 MCG TAB PO SCH (16:15)
[2017-08-06] MEDS: LISINOPRIL 5 MG TAB PO SCH (16:16)
[2017-08-06] MEDS: PANTOPRAZOLE 40 MG TABLET PO SCH (16:16)
[2017-08-06] MEDS: HEPARIN SODIUM,PORCINE 5,000 UNIT/ML 1 ML VIAL SQ SCH ×2 (16:16→19:51)
[2017-08-06] MEDS: GABAPENTIN 100 MG CAP PO SCH ×3 (16:16→19:51)
[2017-08-06] MEDS: ASPIRIN 325 MG TAB PO SCH (16:18)
[2017-08-06] MEDS: METOPROLOL SUCCINATE (ER) 25 MG TAB.ER.24H PO SCH (16:18)
[2017-08-06 16:49] LABS: Glucose,Whole Blood 101 mg/dL (75-99)
--- NOTE | 2017-08-06 17:49 | P.PN ---
Subjective Progress Note Date: 08/06/17 This patient is a 67 year old female being evaluated for right sided weakness and slurred speech. She was admitted for possible stroke like symptoms. She underwent MRI brain today that fails to reveal any evidence of acute stroke on diffusion weight imaging. Her MRI continues to reveal age related atrophy and chronic small vessel ischemic changes. There is evidence of an old left frontal lobe infarct. We have reviewed the test results today with the patient and her sister was at bedside. They were updated on all these findings. She was seen by vascular surgery today and her carotid Doppler ultrasound was reviewed. Patient underwent left carotid endarterectomy in [address] Bishop. As noted she was reviewed today by Dr. Bishop recommends no surgical intervention for the right internal carotid artery stenosis. There is right-sided high-grade stenosis which is asymptomatic. She has a history of having had radiation therapy to her neck in the past and surgical indication is not advised by Dr. Bishop. If she needs a right-sided carotid stenosis corrected she will need a carotid stent placement that should be done in a tertiary center. Patient will follow up with Dr. Bishop soon after discharge. Patient otherwise seems to be doing about the same in terms of her neuro deficits. She has noted slight improvement with her speech today. She still has residual right-sided weakness. As noted MRI failed to reveal any evidence of acute stroke on diffusion imaging. We will await further recommendations from Dr. Ambrosio who is evaluating her for inpatient rehab placement. We will continue the PTOT and speech therapy for her. Her overall prognosis at this time remains guarded. Objective - Vital Signs Vital signs: Vital Signs Temp 96.9 F L 08/06/17 12:00 Pulse 97 08/06/17 12:00 Resp 18 08/06/17 12:00 BP 142/112 08/06/17 12:00 Pulse Ox 95 08/06/17 12:00 Intake & Output 08/05/17 08/06/17 08/06/17 18:59 06:59 18:59 Intake Total 600 Output Total 300 Balance 300 Weight 77.111 kg 74.6 kg Intake: Intake, IV Titration 600 Amount Sodium Chloride 0.9% 1, 600 000 ml @ 75 mls/hr IV . [id number] [facility] Rx#:[id number] Output: Urine 300 Other: Voiding Method Bedside Commode Bedside Commode # Voids 1 - Exam Physical Examination: PHYSICAL EXAMINATION: Patient is resting comfortably in bed. VITAL SIGNS: Blood pressure is [131/55]. Heart rate is [96]. Respiration is [18] . Temperature is [97.4]. HEENT: Head is atraumatic, neck is supple, there were no carotid bruits. CHEST: Lungs are clear to auscultation and percussion. CARDIAC: S1, S2 normal rate and rhythm. There is no murmur. ABDOMEN: Soft and nontender. Bowel sounds are present. EXTREMITIES: There is no pedal edema. Peripheral pulses are present. Neurological examination: Patient is alert and oriented 3. Speech is slightly dysarthric at times. Memory and intellectual functions are appropriate for age. Cranial nerves II through XII are grossly intact. Motor examination reveals right-sided hemiparesis. Deep tendon reflexes are 1+ and symmetric. Plantar responses flexor bilaterally. - Labs CBC & Chem 7: 08/06/17 06:02 08/06/17 06:02 Labs: Abnormal Lab Results - Last 24 Hours (Table) 08/05/17 08/05/17 08/05/17 Range/Units 16:42 20:35 21:25 WBC (3.8-10.6) k/uL RBC (3.80-5.40) m/uL Hgb (11.4-16.0) gm/dL Hct (34.0-46.0) % MCV (80.0-100.0) fL Neutrophils # (1.3-7.7) k/uL Lymphocytes # (1.0-4.8) k/uL Sodium (137-145) mmol/L Chloride (98-107) mmol/L Carbon Dioxide (22-30) mmol/L BUN (7-17) mg/dL Creatinine (0.52-1.04) mg/dL Glucose (74-99) mg/dL POC Glucose (mg/dL) 71 L 72 L (75-99) mg/dL Total Creatine Kinase (30-135) U/L CK-MB (CK-2) (0.0-2.4) ng/mL Triglycerides (<150) mg/dL HDL Cholesterol (40-60) mg/dL Urine Appearance Turbid H (Clear) Urine Protein 1+ H (Negative) Urine Blood Large H (Negative) Ur Leukocyte Esterase Large H (Negative) Urine RBC 59 H (0-5) /hpf Urine WBC >182 H (0-5) /hpf Urine WBC Clumps Many H (None) /hpf Urine Opiates Screen Detected H (NotDetected) U Tricyclic Antidepress Detected H (NotDetected) 08/05/17 08/06/17 08/06/17 Range/Units 23:18 05:45 06:02 WBC (3.8-10.6) k/uL RBC (3.80-5.40) m/uL Hgb (11.4-16.0) gm/dL Hct (34.0-46.0) % MCV (80.0-100.0) fL Neutrophils # (1.3-7.7) k/uL Lymphocytes # (1.0-4.8) k/uL Sodium 127 L (137-145) mmol/L Chloride 96 L (98-107) mmol/L Carbon Dioxide 15 L (22-30) mmol/L BUN 42 H (7-17) mg/dL Creatinine 1.60 H (0.52-1.04) mg/dL Glucose 60 L (74-99) mg/dL POC Glucose (mg/dL) 71 L (75-99) mg/dL Total Creatine Kinase 546 H (30-135) U/L CK-MB (CK-2) 9.3 H* (0.0-2.4) ng/mL Triglycerides 215 H (<150) mg/dL HDL Cholesterol 12 L (40-60) mg/dL Urine Appearance (Clear) Urine Protein (Negative) Urine Blood (Negative) Ur Leukocyte Esterase (Negative) Urine RBC (0-5) /hpf Urine WBC (0-5) /hpf Urine WBC Clumps (None) /hpf Urine Opiates Screen (NotDetected) U Tricyclic Antidepress (NotDetected) 08/06/17 08/06/17 08/06/17 Range/Units 06:02 11:29 11:40 WBC 18.4 H (3.8-10.6) k/uL RBC 3.49 L (3.80-5.40) m/uL Hgb 8.8 L (11.4-16.0) gm/dL Hct 27.0 L (34.0-46.0) % MCV 77.4 L (80.0-100.0) fL Neutrophils # 15.9 H (1.3-7.7) k/uL Lymphocytes # 0.5 L (1.0-4.8) k/uL Sodium (137-145) mmol/L Chloride (98-107) mmol/L Carbon Dioxide (22-30) mmol/L BUN (7-17) mg/dL Creatinine (0.52-1.04) mg/dL Glucose (74-99) mg/dL POC Glucose (mg/dL) 64 L 63 L (75-99) mg/dL Total Creatine Kinase (30-135) U/L CK-MB (CK-2) (0.0-2.4) ng/mL Triglycerides (<150) mg/dL HDL Cholesterol (40-60) mg/dL Urine Appearance (Clear) Urine Protein (Negative) Urine Blood (Negative) Ur Leukocyte Esterase (Negative) Urine RBC (0-5) /hpf Urine WBC (0-5) /hpf Urine WBC Clumps (None) /hpf Urine Opiates Screen (NotDetected) U Tricyclic Antidepress (NotDetected) Microbiology - Last 24 Hours (Table) 08/05/17 21:25 Urine Culture - Preliminary Urine,Clean Catch Assessment and Plan (1) Acute ischemic left MCA stroke Current Visit: Yes Status: Acute Code(s): I63.512 - CEREB INFRC D/T UNSP OCCLS OR STENOS OF LEFT MID CEREB ART SNOMED Code(s): 820706945 (2) Dysphasia Current Visit: Yes Status: Acute Code(s): R47.02 - DYSPHASIA SNOMED Code(s ): 60813386 (3) Hyponatremia Current Visit: Yes Status: Acute Code(s): E87.1 - HYPO-OSMOLALITY AND HYPONATREMIA SNOMED Code(s): 01836532 (4) Renal insufficiency Current Visit: Yes Status: Acute Code(s): N28.9 - DISORDER OF KIDNEY AND URETER, UNSPECIFIED SNOMED Code(s): 388471385 Plan: This patient is a 67-year-old female was admitted hospital with slurred speech and right-sided weakness. She underwent MRI of the brain today results of which are noted above. MRI failed to reveal any evidence of acute stroke. She was evaluated by vascular surgery for right internal carotid artery stenosis. They're not recommending any surgical intervention for her. She was seen by Dr. Ambrosio for possible inpatient rehab placement and we will continue with his evaluation. Patient to continue with PT OT and speech therapy. We reviewed the results of the MRI and carotid ultrasound with the patient in detail as well as her sister who was at bedside. All other questions were answered. We recommend a follow-up with Dr. Stein for further management of right internal carotid artery stenosis. Patient to continue on aspirin therapy for secondary stroke prevention. Her overall prognosis at this time remains guarded.
[2017-08-06] MEDS: LEVOFLOXACIN 500MG-D5W PMX 500 MG in DEXTROSE/WATER 1 100ML.BAG IVPB SCH (19:51)
[2017-08-06] MEDS: AMITRIPTYLINE HCL 50 MG TAB PO SCH (19:51)
[2017-08-06 21:10] LABS: Glucose,Whole Blood 89 mg/dL (75-99)
--- NOTE | 2017-08-06 22:39 | PN ---
PROGRESS NOTE DATE OF SERVICE: 08/06/2017 PRESENTING COMPLAINT: Stroke. INTERVAL HISTORY: This patient was admitted with stroke, weakness on the right side and also dysphagia and dysarthria. The patient's carotid artery stenosis was on the contralateral side. Seen by Dr. Bishop, not for any intervention right now. Looking for the patient to go to rehab. MRI did not show anything acute. She had some multiple chronic changes. Speech is still slow. REVIEW OF SYSTEMS: Done for constitutional, cardiovascular, GI, pulmonary, neuro; relevant findings as above. CURRENT MEDICATIONS: Reviewed that include aspirin and Lopid. PHYSICAL EXAMINATION: Temperature 99.8, pulse 86, respiration 20, blood pressure 147/60, pulse ox 95% on room air. GENERAL: Lying in bed, awake. EYES: Pupils equal. Conjunctivae are normal. HEENT: External appearance of nose and ears normal. Oral cavity normal. NECK: JVD unable to assess. Mass not palpable. Respiratory effort normal. LUNGS: Fair entry. CARDIOVASCULAR: 1st and 2nd sounds normal. No edema. ABDOMEN: Soft, nontender. Liver and spleen not palpable. PSYCHIATRY: A and O x3. Mood and affect normal. NEUROLOGIC: Speech is slurred. Power in the right arm is 3/5. INVESTIGATIONS: Brain MRI showed some chronic changes. 2D echocardiogram unremarkable. ASSESSMENT: 1. Acute stroke in the left MCA territory, probably ischemic in nature, in a right- handed patient. 2. Acute dysarthria from stroke. 3. Acute dysphagia from stroke. 4. Obesity; BMI 30.1. 5. Chronic kidney disease stage 3, probably from nephrosclerosis. 6. Metabolic acidosis from chronic kidney disease. 7. Hyponatremia type unknown. 8. Hypoglycemia, probably from decreased oral intake. 9. Greater than 70% right internal carotid artery stenosis. PLAN: We will switch the IV fluids to D5 0.45, put the patient on some fluid restriction. Check the patient's serum osmolality. Repeat electrolytes in the morning. We will also stop the patient's NSAIDs. Follow. MMODL / IJN: [id number] /
[2017-08-06] MEDS: DEXTROSE 5%-0.45% NACL 1,000 ML IV SCH (23:37)
[2017-08-06] MEDS: SODIUM BICARBONATE TAB 650 MG TAB PO SCH (23:37)
[2017-08-07 05:59] LABS: Glucose,Whole Blood 100 mg/dL (75-99)
[2017-08-07 06:30] LABS: Basophils # (A) 0.1 k/uL (0-0.2); Basophils % (A) 1 %; Eosinophils # (A) 0.2 k/uL (0-0.7); Eosinophils % (A) 1 %; HCT 28.4 % (34.0-46.0); HGB 9.1 gm/dL (11.4-16.0); Lymphocytes # (A) 0.6 k/uL (1.0-4.8); Lymphocytes % (A) 3 %; MCHC 32.2 g/dL (31.0-37.0); MCV 77.6 fL (80.0-100.0); Mean Platelet Volume 6.8; Microcytosis Slight; Monocytes # (A) 1.4 k/uL (0-1.0); Monocytes % (A) 7 %; Neutrophils # (A) 18.2 k/uL (1.3-7.7); Neutrophils % (A) 85 %; Platelet Count 383 k/uL (150-450); RBC 3.66 m/uL (3.80-5.40); WBC 21.4 k/uL (3.8-10.6)
[2017-08-07] MEDS: LEVOTHYROXINE 125 MCG TAB PO SCH (06:42)
[2017-08-07] MEDS: GEMFIBROZIL 600 MG TAB PO SCH ×2 (06:43→17:13)
[2017-08-07 06:53] LABS: Calcium 9.5 mg/dL (8.4-10.2); Potassium 4.6 mmol/L (3.5-5.1)
[2017-08-07] MEDS: FLUoxetine HCL 20 MG CAP PO SCH (07:34)
[2017-08-07] MEDS: ASPIRIN 325 MG TAB PO SCH (07:34)
[2017-08-07] MEDS: GABAPENTIN 100 MG CAP PO SCH ×3 (07:34→19:55)
[2017-08-07] MEDS: HEPARIN SODIUM,PORCINE 5,000 UNIT/ML 1 ML VIAL SQ SCH ×2 (07:34→19:55)
[2017-08-07] MEDS: SODIUM BICARBONATE TAB 650 MG TAB PO SCH ×3 (07:35→19:55)
[2017-08-07] MEDS: METOPROLOL SUCCINATE (ER) 25 MG TAB.ER.24H PO SCH (07:35)
[2017-08-07] MEDS: PANTOPRAZOLE 40 MG TABLET PO SCH (07:35)
[2017-08-07] MEDS: LISINOPRIL 5 MG TAB PO SCH (07:35)
[2017-08-07] MEDS: DEXTROSE 5%-0.45% NACL 1,000 ML IV SCH ×3 (11:00→19:55)
[2017-08-07 12:18] LABS: Glucose,Whole Blood 96 mg/dL (75-99)
--- NOTE | 2017-08-07 14:52 | P.PN ---
Subjective Progress Note Date: 08/07/17 This is a 67-year-old female with history of prior CVA, diabetes, hypertension, hyperlipidemia, hypothyroidism, throat cancer, depression, who presented to the hospital with symptoms of significant expressive aphasia, slurring of speech, and right-sided weakness. Apparently the symptoms have been going on for the past couple of days prior to her admission here. Patient was also complaining of headache. CAT scan of the brain was performed which revealed significant encephalomalacia on the left side indicating old left- sided infarct and the patient was admitted for further evaluation and treatment. A carotid Doppler study was also performed which revealed high- grade stenosis of the right internal carotid artery and carotid, carotid stenosis greater than 70%. Cardiology consultation was requested to rule out cardiac source for her CVA. The pressure on arrival here 90/50, heart rate in the 90s, 98% on room air. White blood cell count 22.3 on arrival, 18.4 this morning. Hemoglobin 8.8, platelet count 312, sodium on admission 126, 127 this morning. Potassium 4.2, BUN 42, creatinine 1.6. Troponin 0.04, 0.03. Urine drug screen positive for opiates and antidepressants. At the time of my examination this morning, physical therapy had just been in working with the patient, she continues to have significant right-sided weakness as well as expressive aphasia and slurring of speech. Her EKG shows a normal sinus rhythm with a left bundle-branch block pattern. 08/07/2017 Patient was seen and examined this morning, hemodynamically she is stable. Continues to have some evidence of right-sided weakness and expressive aphasia with slurring of her speech. The pressure 122/56 with a heart rate in the 80s, 94% on room air. White blood cell count 21.4, hemoglobin 9.1, platelet count 383. Sodium 133, potassium 4.6, BUN 39, creatinine 1.4. An echocardiogram with Doppler study was performed which revealed an ejection fraction of 50-55%. From cardiology's perspective, patient may be transferred to rehab once cleared by primary. When she is discharged home, we would recommend a 30 day event monitor. Follow-up appointment with Dr. Gustavo Cartagena in the office. Objective - Vital Signs Vital signs: Vital Signs Temp 98.5 F 08/07/17 11:28 Pulse 88 08/07/17 11:32 Resp 18 08/07/17 11:28 BP 123/55 08/07/17 11:28 Pulse Ox 94 L 08/07/17 11:28 Intake & Output 08/06/17 08/07/17 08/07/17 18:59 06:59 18:59 Output Total 400 300 350 Balance -400 -300 -350 Weight 71.6 kg Output: Urine 400 300 350 Other: Voiding Method Bedside Commode Bedside Commode # Voids 1 2 # Bowel Movements 2 1 - Exam HEENT: Head is atraumatic, normocephalic. Pupils equal, round. Sclera anicteric. Conjunctiva are clear. Mucous membranes of the mouth are moist. Neck is supple. There is no elevated jugular venous pressure.] bruit is heard. HEART EXAMINATION: Heart S1, S2 normal. No murmur or gallop heard. CHEST EXAMINATION: Lungs are clear to auscultation and precussion. No chest wall tenderness is noted on palpation or with deep breathing. ABDOMEN: Soft, nontender. Bowel sounds are heard. No organomegaly noted. EXTREMITIES: 2+ peripheral pulses with no evidence of peripheral edema and no calf tenderness noted. NEUROLOGIC patient is awake, alert and oriented -3. Positive right sided weakness with mild slurring of speech. . - Labs CBC & Chem 7: 08/07/17 06:08 08/07/17 06:08 Labs: Abnormal Lab Results - Last 24 Hours (Table) 08/06/17 08/07/17 08/07/17 Range/Units 16:47 05:57 06:08 WBC 21.4 H (3.8-10.6) k/uL RBC 3.66 L (3.80-5.40) m/uL Hgb 9.1 L (11.4-16.0) gm/dL Hct 28.4 L (34.0-46.0) % MCV 77.6 L (80.0-100.0) fL Neutrophils # 18.2 H (1.3-7.7) k/uL Lymphocytes # 0.6 L (1.0-4.8) k/uL Monocytes # 1.4 H (0-1.0) k/uL Sodium (137-145) mmol/L Carbon Dioxide (22-30) mmol/L BUN (7-17) mg/dL Creatinine (0.52-1.04) mg/dL POC Glucose (mg/dL) 101 H 100 H (75-99) mg/dL 08/07/17 Range/Units 06:08 WBC (3.8-10.6) k/uL RBC (3.80-5.40) m/uL Hgb (11.4-16.0) gm/dL Hct (34.0-46.0) % MCV (80.0-100.0) fL Neutrophils # (1.3-7.7) k/uL Lymphocytes # (1.0-4.8) k/uL Monocytes # (0-1.0) k/uL Sodium 133 L (137-145) mmol/L Carbon Dioxide 15 L (22-30) mmol/L BUN 39 H (7-17) mg/dL Creatinine 1.46 H (0.52-1.04) mg/dL POC Glucose (mg/dL) (75-99) mg/dL Microbiology - Last 24 Hours (Table) 08/05/17 21:25 Urine Culture - Preliminary Urine,Clean Catch Gram Neg Bacilli 08/05/17 19:09 Blood Culture - Preliminary Blood No Growth after 24 hours Assessment and Plan Plan: Assessment and plan #1 symptoms of right-sided weakness and slurring of speech, possible acute left hemispheric CVA. Carotid Doppler study showed high-grade stenosis of the right internal carotid artery #2 history of prior CVA #3 hypertension #4 hyperlipidemia #5 hypothyroidism #6 diabetes #7 depression and anxiety Plan Cardiology's perspective, once the patient is discharged home from rehab we would recommend she have a 30 day event monitor. Follow-up appointment with Dr. Gustavo Cartagena in the office in one month. DNP note has been reviewed, I agree with a documented findings and plan of care. Patient was seen and examined.
--- NOTE | 2017-08-07 15:46 | EEG ---
ELECTROENCEPHALOGRAM REPORT DATE OF EE08/06/2017. REFERRING PHYSICIAN: Dr. Redding. INTERPRETING PHYSICIAN: Dr. Octavio Arora MD ELECTROENCEPHALOGRAPHIC EXAMINATION REPORT: INDICATION FOR EXAMINATION: This patient is a 67-year-old female, admitted with right-sided weakness and new onset of dysarthric speech. The patient with previous history of old stroke. MRI of the brain reveals no acute stroke findings. AGE: [age]. EEG FINDINGS: A routine 21 channel awake digital EEG recording was accomplished utilizing the 10-20 international system with bipolar and referential montages. The background activity in the most alert resting state consists of a low to medium amplitude, poorly developed and poorly sustained 5-6 Hz activity over the posterior head regions. This posterior rhythm attenuates minimally to eye opening. There is a small amount of low amplitude 18-20 Hz beta activity seen maximally over the anterior head regions. Muscle and movement artifact was observed on a few occasions during the tracing. Hyperventilation was not performed. Photic stimulation at flash frequencies of 2-30 Hz produced a minimal occipital driving response. No epileptiform discharges were seen. IMPRESSION: This EEG is moderately abnormal in a diffuse fashion due to slowing of the EEG background. The EEG failed to reveal any focal, lateralized, or epileptiform abnormalities. Clinical correlation is recommended. MMODL / IJN: [id number] /
[2017-08-07 16:57] LABS: Glucose,Whole Blood 115 mg/dL (75-99)
--- NOTE | 2017-08-07 19:28 | P.PN ---
Subjective Progress Note Date: 08/07/17 This patient is a 67 year old female being evaluated for right sided weakness and slurred speech. She was admitted for possible stroke like symptoms. She underwent MRI brain today that fails to reveal any evidence of acute stroke on diffusion weight imaging. Her MRI continues to reveal age related atrophy and chronic small vessel ischemic changes. There is evidence of an old left frontal lobe infarct. We have reviewed the test results today with the patient and her sister was at bedside. They were updated on all these findings. She was seen by vascular surgery today and her carotid Doppler ultrasound was reviewed. Patient underwent left carotid endarterectomy in [address] Bishop. As noted she was reviewed today by Dr. Bishop recommends no surgical intervention for the right internal carotid artery stenosis. There is right-sided high-grade stenosis which is asymptomatic. She has a history of having had radiation therapy to her neck in the past and surgical indication is not advised by Dr. Bishop. If she needs a right-sided carotid stenosis corrected she will need a carotid stent placement that should be done in a tertiary center. Patient will follow up with Dr. Bishop soon after discharge. Patient otherwise seems to be doing about the same in terms of her neuro deficits. She has noted slight improvement with her speech today. Patient's speech does seem to wax and wane at times. She appears to have some degree of dysphasia. She still has residual right-sided weakness. As noted MRI failed to reveal any evidence of acute stroke on diffusion imaging. We will await further recommendations from Dr. Ambrosio who is evaluating her for inpatient rehab placement. Patient is recommended to undergo a 30 day event monitor placement soon after discharge from rehab. We will continue the PTOT and speech therapy for her. Her overall prognosis at this time remains guarded. Objective - Vital Signs Vital signs: Vital Signs Temp 98.2 F 08/07/17 16:00 Pulse 86 08/07/17 16:00 Resp 18 08/07/17 16:00 BP 124/64 08/07/17 16:00 Pulse Ox 95 08/07/17 16:00 Intake & Output 08/07/17 08/07/17 08/08/17 06:59 18:59 06:59 Intake Total 100 Output Total 300 350 Balance -300 -250 Weight 71.6 kg Intake: Oral 100 Output: Urine 300 350 Other: Voiding Method Bedside Commode # Voids 1 2 # Bowel Movements 2 1 - Exam Physical Examination: PHYSICAL EXAMINATION: Patient is resting comfortably in bed. VITAL SIGNS: Blood pressure is [124/64]. Heart rate is [86]. Respiration is [18] . Temperature is [98.2]. HEENT: Head is atraumatic, neck is supple, there were no carotid bruits. CHEST: Lungs are clear to auscultation and percussion. CARDIAC: S1, S2 normal rate and rhythm. There is no murmur. ABDOMEN: Soft and nontender. Bowel sounds are present. EXTREMITIES: There is no pedal edema. Peripheral pulses are present. Neurological examination: Patient is alert and oriented 3. Speech is slightly dysarthric at times. Memory and intellectual functions are appropriate for age. Cranial nerves II through XII are grossly intact. Motor examination reveals right-sided hemiparesis. Deep tendon reflexes are 1+ and symmetric. Plantar responses flexor bilaterally. - Labs CBC & Chem 7: 08/07/17 06:08 08/07/17 06:08 Labs: Abnormal Lab Results - Last 24 Hours (Table) 08/07/17 08/07/17 08/07/17 Range/Units 05:57 06:08 06:08 WBC 21.4 H (3.8-10.6) k/uL RBC 3.66 L (3.80-5.40) m/uL Hgb 9.1 L (11.4-16.0) gm/dL Hct 28.4 L (34.0-46.0) % MCV 77.6 L (80.0-100.0) fL Neutrophils # 18.2 H (1.3-7.7) k/uL Lymphocytes # 0.6 L (1.0-4.8) k/uL Monocytes # 1.4 H (0-1.0) k/uL Sodium 133 L (137-145) mmol/L Carbon Dioxide 15 L (22-30) mmol/L BUN 39 H (7-17) mg/dL Creatinine 1.46 H (0.52-1.04) mg/dL POC Glucose (mg/dL) 100 H (75-99) mg/dL 08/07/17 Range/Units 16:52 WBC (3.8-10.6) k/uL RBC (3.80-5.40) m/uL Hgb (11.4-16.0) gm/dL Hct (34.0-46.0) % MCV (80.0-100.0) fL Neutrophils # (1.3-7.7) k/uL Lymphocytes # (1.0-4.8) k/uL Monocytes # (0-1.0) k/uL Sodium (137-145) mmol/L Carbon Dioxide (22-30) mmol/L BUN (7-17) mg/dL Creatinine (0.52-1.04) mg/dL POC Glucose (mg/dL) 115 H (75-99) mg/dL Microbiology - Last 24 Hours (Table) 08/05/17 21:25 Urine Culture - Preliminary Urine,Clean Catch Gram Neg Bacilli 08/05/17 19:09 Blood Culture - Preliminary Blood No Growth after 24 hours Assessment and Plan (1) Acute ischemic left MCA stroke Current Visit: Yes Status: Acute Code(s): I63.512 - CEREB INFRC D/T UNSP OCCLS OR STENOS OF LEFT MID CEREB ART SNOMED Code(s): 668093035 (2) Dysphasia Current Visit: Yes Status: Acute Code(s): R47.02 - DYSPHASIA SNOMED Code(s ): 53119045 (3) Hyponatremia Current Visit: Yes Status: Acute Code(s): E87.1 - HYPO-OSMOLALITY AND HYPONATREMIA SNOMED Code(s): 50306143 (4) Renal insufficiency Current Visit: Yes Status: Acute Code(s): N28.9 - DISORDER OF KIDNEY AND URETER, UNSPECIFIED SNOMED Code(s): 667783543 Plan: This patient is a 67-year-old female was admitted hospital with slurred speech and right-sided weakness. She underwent MRI of the brain today results of which are noted above. MRI failed to reveal any evidence of acute stroke. She was evaluated by vascular surgery for right internal carotid artery stenosis. They're not recommending any surgical intervention for her. She was seen by Dr. Ambrosio for possible inpatient rehab placement and we will continue with his evaluation. Patient to continue with PT/OT and speech therapy. We reviewed the results of the MRI and carotid ultrasound with the patient in detail as well as her sister who was at bedside. All other questions were answered. We recommend a follow-up with Dr. Bishop for further management of right internal carotid artery stenosis. No surgery is being planned at this time. Patient to continue on aspirin therapy for secondary stroke prevention. Cardiology is recommending a 30 day event monitor be placed for this patient for long-term management of cardiac arrhythmia. Her overall prognosis at this time remains guarded. Patient is awaiting discharge to subacute rehab. Overall prognosis at this time remains guarded.
[2017-08-07] MEDS: AMITRIPTYLINE HCL 50 MG TAB PO SCH (19:55)
[2017-08-07 20:48] LABS: Glucose,Whole Blood 117 mg/dL (75-99)
--- NOTE | 2017-08-07 23:58 | PN ---
PROGRESS NOTE DATE OF SERVICE: 08/07/2017 PRESENTING COMPLAINT: Stroke. INTERVAL HISTORY: This patient presented with stroke primarily affecting the right side, the right arm and both dysphagia and dysarthria. The patient's dysarthria is still present, both including the context and difficulty with words. The patient's fiance is present and so is a friend. Per Dr. Bishop, no further intervention. Inpatient rehab is being looked into. REVIEW OF SYSTEMS: Done for constitutional, cardiovascular, GI, pulmonary; relevant findings as above. The patient's speech is no different. CURRENT MEDICATIONS: Reviewed that include: 1. Aspirin and. 2. Lopid. EXAMINATION: Temperature 98.2, pulse 86, respirations 18, blood pressure 125/64 pulse ox 95% on room air. GENERAL APPEARANCE: Sitting in bed, awake. EYES: Pupils equal. Conjunctivae normal. HEENT: External nose and ears normal. Oral cavity normal. NECK: JVD unable to assess. Mass not palpable. RESPIRATORY: Effort normal. LUNGS: Fair air entry. CARDIOVASCULAR: First and second sounds normal. No edema. ABDOMEN: Soft, nontender. Liver and spleen not palpable. PSYCHIATRY: Patient awake, able to answer questions. NEUROLOGICAL: Speech remains slurred. Patient is slow, cannot say objects on the table. Power in the right arm remains 3/5. INVESTIGATIONS: No new investigation. ASSESSMENT: 1. Acute stroke in the left middle cerebral artery territory, probably ischemic in nature, in a right-handed patient. 2. Acute dysarthria from stroke. 3. Acute dysphagia from stroke. 4. Obesity; BMI 30.1. 5. Chronic kidney disease stage 3 probably from nephrosclerosis. 6. Metabolic acidosis from chronic kidney disease. 7. Hypoglycemia, probably from decreased oral intake. 8. Greater than 70% right internal carotid artery stenosis, not for any intervention, as the event is on the left side. 9. Normal osmolar hyponatremia. PLAN: I spoke to the speech therapist. She probably will try the patient on a pureed diet. Also discussed at length with the patient's fiance and the friend. Also discussed with Dr. Bishop, not for any intervention at the present time. He has been following the patient as outpatient. More than 40 minutes was spent today with over 25 minutes of discussion. MMODL / IJN: [id number] /
[2017-08-08 05:46] LABS: Glucose,Whole Blood 122 mg/dL (75-99)
[2017-08-08 06:37] LABS: Basophils # (A) 0.1 k/uL (0-0.2); Basophils % (A) 1 %; Eosinophils # (A) 0.2 k/uL (0-0.7); Eosinophils % (A) 1 %; HGB 9.5 gm/dL (11.4-16.0); Lymphocytes # (A) 1.1 k/uL (1.0-4.8); Lymphocytes % (A) 7 %; MCH 25.2 pg (25.0-35.0); MCHC 32.8 g/dL (31.0-37.0); MCV 76.8 fL (80.0-100.0); Mean Platelet Volume 6.7; Microcytosis Slight; Monocytes # (A) 0.9 k/uL (0-1.0); Monocytes % (A) 6 %; Neutrophils # (A) 13.3 k/uL (1.3-7.7); Neutrophils % (A) 82 %; Platelet Count 427 k/uL (150-450); RBC 3.77 m/uL (3.80-5.40); RDW 15.5 % (11.5-15.5); WBC 16.3 k/uL (3.8-10.6)
[2017-08-08] MEDS: LEVOTHYROXINE 125 MCG TAB PO SCH (06:37)
[2017-08-08] MEDS: GEMFIBROZIL 600 MG TAB PO SCH (06:37)
[2017-08-08 06:57] LABS: Calcium 9.3 mg/dL (8.4-10.2); Potassium 4.4 mmol/L (3.5-5.1)
[2017-08-08] MEDS: SODIUM BICARBONATE TAB 650 MG TAB PO SCH (11:08)
[2017-08-08] MEDS: ASPIRIN 325 MG TAB PO SCH (11:08)
[2017-08-08] MEDS: GABAPENTIN 100 MG CAP PO SCH (11:08)
[2017-08-08] MEDS: FLUoxetine HCL 20 MG CAP PO SCH (11:08)
[2017-08-08] MEDS: PANTOPRAZOLE 40 MG TABLET PO SCH (11:09)
[2017-08-08] MEDS: LISINOPRIL 5 MG TAB PO SCH (11:09)
[2017-08-08] MEDS: METOPROLOL SUCCINATE (ER) 25 MG TAB.ER.24H PO SCH (11:09)
[2017-08-08] MEDS: HEPARIN SODIUM,PORCINE 5,000 UNIT/ML 1 ML VIAL SQ SCH (11:09)
[2017-08-08 12:26] LABS: Glucose,Whole Blood 118 mg/dL (75-99)
--- NOTE | 2017-08-08 14:32 | DS ---
DISCHARGE SUMMARY DATE OF ADMISSION: 08/05/2017 DATE OF DISCHARGE: 08/08/2017 FINAL DIAGNOSES: 1. Acute stroke in the left middle cerebral artery area, probably ischemic in nature, in a right-handed patient. 2. Acute dysarthria from stroke. 3. Acute dysphagia from stroke. 4. Obesity; body mass index of 30.1. 5. Chronic kidney disease stage III, probably from nephrosclerosis. 6. Metabolic acidosis from chronic kidney disease. 7. Hypoglycemia, probably from decreased oral intake. 8. Greater than 70% right internal carotid artery stenosis, not for any intervention. 9. Hyposmolar hyponatremia. HOSPITAL COURSE: This patient presented with acute stroke. MRI did show some chronic changes. EEG did not show any seizure activity. A 2D echocardiogram showed EF of 50% to 55%. Carotid Doppler showed more than 70% stenosis on the right side. Per Dr. Bishop, this is side not affecting the stroke. No intervention is to be done. Also the patient did receive radiation on that side. Patient is seen by Speech Therapy. Patient has some trouble swallowing and some pureed diet, that is all feeding supervised is to be done. Today, care was discussed with the patient, her fiance and son at the bedside. Questions were answered. PHYSICAL EXAM: Lungs are clear. CARDIOVASCULAR: First and second sounds are normal. Power in the right arm is 3/5. Speech is still slow and slurred. White count 16.3, hemoglobin 9.5, BUN 26, creatinine 1.09. DISCHARGE MEDICATIONS: 1. Elavil 50 mg q.h.s. 2. Prozac 20 mg p.o. daily. 3. Neurontin 100 mg p.o. t.i.d. 4. Lopid 600 mg p.o. b.i.d. 5. Levothyroxine 125 mcg p.o. daily. 6. Zestril 5 mg p.o. daily. 7. Toprol-XL 25 mg p.o. daily. 8. Naproxen 500 mg q.12 p.r.n. 9. Protonix 40 mg p.o. daily. 10.Clonazepam 2 mg p.o. b.i.d. p.r.n. 11.Aspirin 81 mg p.o. b.i.d. 12.Lipitor 40 mg p.o. daily. 13.Levaquin 500 mg p.o. q.48 hours for 4 tablets. 14.Sodium bicarbonate 650 mg p.o. t.i.d. DISPOSITION: [facility] rehab place. Accepting physician at that place is Dr. Ambrosio from rehab. Care was discussed with the patient and family. Discharge planning more than 35 minutes. CONSULTATIONS: 1. Dr. Tiara Cartagena from Cardiology. 2. Dr. Mita Arora from Neurology. 3. Dr. Kleber Ambrosio from Rehab. 4. Dr. Pablito Bishop from Vascular. Followup with Dr. Saravanan Bishop in 1 week; Dr. Nikko Yang after DC from the rehab; Dr. Mita Arora in 10 days. Discharge planning more than 35 minutes. MMODL / IJN: [id number] /
--- NOTE | 2017-08-08 14:36 | XR ---
EXAMINATION TYPE: XR chest 2V DATE OF EXAM: 08/08/2017 COMPARISON: 08/05/2017 HISTORY: Cough TECHNIQUE: Frontal and lateral views of the chest are obtained. FINDINGS: There is no focal air space opacity, pleural effusion, or pneumothorax seen. Segmental lef t lower lung platelike atelectasis is noted. The cardiac silhouette size is upper limits of normal. The osseous structures are intact. Cholecystectomy clips are noted within the right upper quadrant. Arthropathy of the bilateral shoulders and degenerative changes of the thoracic spine are mild. IMPRESSION: Left lower lung platelike atelectasis. Otherwise no acute cardiopulmonary process.
[2017-08-08 15:07] VITALS: RESP 18
[2017-08-08 15:56] VITALS: BP 118/79; PULSE 87; TEMP 98.7
--- NOTE | 2017-08-08 16:25 | P.PN ---
Subjective Progress Note Date: 08/08/17 This patient is a 67 year old female being evaluated for right sided weakness and slurred speech. She was admitted for possible stroke like symptoms. She underwent MRI brain today that fails to reveal any evidence of acute stroke on diffusion weight imaging. Her MRI continues to reveal age related atrophy and chronic small vessel ischemic changes. There is evidence of an old left frontal lobe infarct. We have reviewed the test results today with the patient and her sister was at bedside. They were updated on all these findings. She was seen by vascular surgery today and her carotid Doppler ultrasound was reviewed. Patient underwent left carotid endarterectomy in [address] Bishop. As noted she was reviewed today by Dr. Bishop recommends no surgical intervention for the right internal carotid artery stenosis. There is right-sided high-grade stenosis which is asymptomatic. She has a history of having had radiation therapy to her neck in the past and surgical indication is not advised by Dr. Bishop. If she needs a right-sided carotid stenosis corrected she will need a carotid stent placement that should be done in a tertiary center. Patient will follow up with Dr. Bishop soon after discharge. Patient otherwise seems to be doing about the same in terms of her neuro deficits. She has noted slight improvement with her speech today. Patient's speech does seem to wax and wane at times. She appears to have some degree of dysphasia. She still has residual right-sided weakness. As noted MRI failed to reveal any evidence of acute stroke on diffusion imaging. We will await further recommendations from Dr. Ambrosio who is evaluating her for inpatient rehab placement. Patient is recommended to undergo a 30 day event monitor placement soon after discharge from rehab. Patient is being discharged to a [facility] for rehab management. We will continue the PTOT and speech therapy for her. Her overall prognosis at this time remains guarded. Objective - Vital Signs Vital signs: Vital Signs Temp 99.8 F H 08/08/17 08:00 Pulse 88 08/08/17 08:00 Resp 18 08/08/17 08:00 BP 104/57 08/08/17 08:00 Pulse Ox 93 L 08/08/17 08:00 Intake & Output 08/07/17 08/08/17 08/08/17 18:59 06:59 18:59 Intake Total 100 236 Output Total 350 125 450 Balance -250 -125 -214 Weight 69.9 kg Intake: Oral 100 236 Output: Urine 350 125 450 Other: Voiding Method Bedside Commode # Voids 2 2 2 # Bowel Movements 1 - Exam Physical Examination: PHYSICAL EXAMINATION: Patient is resting comfortably in bed. VITAL SIGNS: Blood pressure is [104/57]. Heart rate is [88]. Respiration is [18] . Temperature is [99.8]. HEENT: Head is atraumatic, neck is supple, there were no carotid bruits. CHEST: Lungs are clear to auscultation and percussion. CARDIAC: S1, S2 normal rate and rhythm. There is no murmur. ABDOMEN: Soft and nontender. Bowel sounds are present. EXTREMITIES: There is no pedal edema. Peripheral pulses are present. Neurological examination: Patient is alert and oriented 3. Speech is slightly dysarthric at times. Memory and intellectual functions are appropriate for age. Cranial nerves II through XII are grossly intact. Motor examination reveals right-sided hemiparesis. Deep tendon reflexes are 1+ and symmetric. Plantar responses flexor bilaterally. - Labs CBC & Chem 7: 08/08/17 06:03 08/08/17 06:03 Labs: Abnormal Lab Results - Last 24 Hours (Table) 08/07/17 08/07/17 08/08/17 Range/Units 16:52 20:47 05:44 WBC (3.8-10.6) k/uL RBC (3.80-5.40) m/uL Hgb (11.4-16.0) gm/dL Hct (34.0-46.0) % MCV (80.0-100.0) fL Neutrophils # (1.3-7.7) k/uL Carbon Dioxide (22-30) mmol/L BUN (7-17) mg/dL Creatinine (0.52-1.04) mg/dL Glucose (74-99) mg/dL POC Glucose (mg/dL) 115 H 117 H 122 H (75-99) mg/dL 08/08/17 08/08/17 08/08/17 Range/Units 06:03 06:03 12:05 WBC 16.3 H (3.8-10.6) k/uL RBC 3.77 L (3.80-5.40) m/uL Hgb 9.5 L (11.4-16.0) gm/dL Hct 29.0 L (34.0-46.0) % MCV 76.8 L (80.0-100.0) fL Neutrophils # 13.3 H (1.3-7.7) k/uL Carbon Dioxide 16 L (22-30) mmol/L BUN 26 H (7-17) mg/dL Creatinine 1.09 H (0.52-1.04) mg/dL Glucose 109 H (74-99) mg/dL POC Glucose (mg/dL) 118 H (75-99) mg/dL Microbiology - Last 24 Hours (Table) 08/05/17 21:25 Urine Culture - Final Urine,Clean Catch Escherichia coli 08/05/17 19:09 Blood Culture - Preliminary Blood No Growth after 48 hours Assessment and Plan (1) Acute ischemic left MCA stroke Status: Acute Code(s): I63.512 - CEREB INFRC D/T UNSP OCCLS OR STENOS OF LEFT MID CEREB ART SNOMED Code(s): 768627589 (2) Dysphasia Status: Acute Code(s): R47.02 - DYSPHASIA SNOMED Code(s): 01922454 (3) Hyponatremia Status: Acute Code(s): E87.1 - HYPO-OSMOLALITY AND HYPONATREMIA SNOMED Code( s): 53375034 (4) Renal insufficiency Status: Acute Code(s): N28.9 - DISORDER OF KIDNEY AND URETER, UNSPECIFIED SNOMED Code(s): 240080659 Plan: This patient is a 67-year-old female was admitted hospital with slurred speech and right-sided weakness. She underwent MRI of the brain today results of which are noted above. MRI failed to reveal any evidence of acute stroke. She was evaluated by vascular surgery for right internal carotid artery stenosis. They're not recommending any surgical intervention for her. She was seen by Dr. Ambrosio for possible inpatient rehab placement and we will continue with his evaluation. Patient to continue with PT/OT and speech therapy. We reviewed the results of the MRI and carotid ultrasound with the patient in detail as well as her sister who was at bedside. All other questions were answered. We recommend a follow-up with Dr. Bishop for further management of right internal carotid artery stenosis. No surgery is being planned at this time. Patient to continue on aspirin therapy for secondary stroke prevention. Cardiology is recommending a 30 day event monitor be placed for this patient for long-term management of cardiac arrhythmia. Her overall prognosis at this time remains guarded. Patient is awaiting discharge to subacute rehab. According to the nursing staff she will be transferred to [facility] for ongoing subacute rehabilitation. Patient may follow-up in the outpatient neurology clinic as needed in 3-4 weeks. Overall prognosis at this time remains guarded.
[2017-08-08] MEDS ORDERED: LEVOFLOXACIN 500 MG TAB PO SCH (19:00)
== END 2017-08-08 15:50 | DRG 64 ==
LOC: EC 11:43 → 6SEL 14:53
PROVIDERS: ADMIT Hospitalist; ATTEND Hospitalist
DX: I63.8 Other cerebral infarction (principal); G93.41 Metabolic encephalopathy; E87.1 Hypo-osmolality and hyponatremia; E87.2 Acidosis; G81.91 Hemiplegia, unspecified affecting right dominant side; E03.9 Hypothyroidism, unspecified; E11.22 Type 2 diabetes mellitus with diabetic chronic kidney disease; E11.649 Type 2 diabetes mellitus with hypoglycemia without coma; E66.9 Obesity, unspecified; E78.5 Hyperlipidemia, unspecified; F32.9 Major depressive disorder, single episode, unspecified; F41.9 Anxiety disorder, unspecified; G93.89 Other specified disorders of brain; I12.9 Hypertensive chronic kidney disease with stage 1 through stage 4 chronic kidney disease, or unspecified chronic kidney disease; I44.7 Left bundle-branch block, unspecified; I65.21 Occlusion and stenosis of right carotid artery; N18.3 Chronic kidney disease, stage 3 (moderate); R13.10 Dysphagia, unspecified; R47.01 Aphasia; R26.9 Unspecified abnormalities of gait and mobility; R41.89 Other symptoms and signs involving cognitive functions and awareness; D72.829 Elevated white blood cell count, unspecified; Z79.899 Other long term (current) drug therapy; Z79.82 Long term (current) use of aspirin; Z79.890 Hormone replacement therapy; Z68.30 Body mass index [BMI] 30.0-30.9, adult; Z86.73 Personal history of transient ischemic attack (TIA), and cerebral infarction without residual deficits; Z87.891 Personal history of nicotine dependence; Z90.49 Acquired absence of other specified parts of digestive tract; Z85.819 Personal history of malignant neoplasm of unspecified site of lip, oral cavity, and pharynx; Z88.1 Allergy status to other antibiotic agents; Z88.2 Allergy status to sulfonamides; Z92.3 Personal history of irradiation; Z82.49 Family history of ischemic heart disease and other diseases of the circulatory system; Z80.49 Family history of malignant neoplasm of other genital organs
CPT/HCPCS: 36415; 70450; 70551; 71046; 80048; 80053; 80061; 80306; 81001; 82550; 82553; 83036; 83930; 84484; 85025; 85610; 85730; 87040; 87077; 87086; 87186; 93005; 93306; 93880; 94760; 95819; 96360; 96361; 99285

== ENCOUNTER → 2018-05-28 | Day surgery (SDC) | payer MEDICARE ==
[~2018-05-28] MED LIST: LACTATED RINGERS 1,000 ML IV SCH; LIDOCAINE 1% 20 ML VIAL (10MG/ML) FOR IV START INTRADERMA PRN; LIDOCAINE 1% INJ 10MG/ML (20 ML MDV) ONE; PROPOFOL 10 MG/ML 20 ML VIAL IV ONE
[2018-05-28 07:48] VITALS: TEMP 97.5
[2018-05-28 07:52] LABS: Glucose,Whole Blood 110 mg/dL (75-99)
--- NOTE | 2018-05-28 08:14 | P.GSHP ---
History of Present Illness H&P Date: 05/28/18 CHIEF COMPLAINT: Colon screen HISTORY OF PRESENT ILLNESS: The patient is a 68-year-old female who presents for colon screen. Lower endoscopy was offered for further evaluation and management. PAST MEDICAL HISTORY: Please see list. PAST SURGICAL HISTORY: Please see list. MEDICATIONS: Please see list. ALLERGIES: Please see list. SOCIAL HISTORY: No illicit drug use FAMILY HISTORY: No reports of Crohn disease or ulcerative colitis. REVIEW OF ORGAN SYSTEMS: CONSTITUTIONAL: No reports of fevers or chills. PHYSICAL EXAM: VITAL SIGNS: Stable GENERAL: Well-developed pleasant in no acute distress. HEENT: No scleral icterus. Extraocular movements grossly intact. Moist buccal mucosa. NECK: Supple without lymphadenopathy. CHEST: Unlabored respirations. Equal bilateral excursions. CARDIOVASCULAR: Regular rate and rhythm. Distal 2+ pulses. ABDOMEN: Soft, nontender, nondistended. MUSCULOSKELETAL: No clubbing, cyanosis, or edema. ASSESSMENT: 1. Colon screen. PLAN: 1. Recommend proceeding with a lower endoscopy Past Medical History Past Medical History: CVA/TIA, Diabetes Mellitus, GERD/Reflux, Hyperlipidemia, Hypertension, Thyroid Disorder Additional Past Medical History / Comment(s): throat cancer. NO RESIDAUL, SOMETIMES FORGETFUL History of Any Multi-Drug Resistant Organisms: None Reported Past Surgical History: Cholecystectomy, Orthopedic Surgery, Tonsillectomy Additional Past Surgical History / Comment(s): LEFT Carotid Endarectomy. BILATERAL ROTATOR CUFF. Past Anesthesia/Blood Transfusion Reactions: No Reported Reaction Past Psychological History: Anxiety, Depression Smoking Status: Former smoker Past Alcohol Use History: Occasional Additional Past Alcohol Use History / Comment(s): QUIT SMOKING 2009. Past Drug Use History: None Reported - Past Family History Mother Family Medical History: Cancer Additional Family Medical History / Comment(s): CERVICAL CA. Father Family Medical History: Myocardial Infarction ([place]) Medications and Allergies Home Medications Medication Instructions Recorded Confirmed Type Amitriptyline HCl [Elavil] 50 mg PO HS 08/05/17 05/28/18 History FLUoxetine HCL [PROzac] 20 mg PO QAM 08/05/17 05/28/18 History Gabapentin [Neurontin] 300 mg PO TID 08/05/17 05/28/18 History Gemfibrozil [Lopid] 600 mg PO AC-BID 08/05/17 05/28/18 History Levothyroxine Sodium 125 mcg PO QAM 08/05/17 05/28/18 History Metoprolol Succinate [Toprol XL] 25 mg PO QAM 08/05/17 05/28/18 History Pantoprazole Sodium 40 mg PO QAM 08/05/17 05/28/18 History Aspirin 325 mg PO DAILY 05/23/18 05/28/18 History Atorvastatin Calcium [Lipitor] 40 mg PO HS 05/23/18 05/28/18 History Cholecalciferol [Vitamin D3] 1,000 unit PO DAILY 05/23/18 05/28/18 History Hydrochlorothiazide 25 mg PO QAM 05/23/18 05/28/18 History Multivitamins, Thera [Multivitamin 1 tab PO DAILY 05/23/18 05/28/18 History (formulary)] clonazePAM [KlonoPIN] 1 mg PO QAM 05/23/18 05/28/18 History metFORMIN HCL ER [Glucophage Xr] 500 mg PO PC-SUPPER 05/23/18 05/28/18 History Allergies Allergy/AdvReac Type Severity Reaction Status Date / Time sulfamethoxazole Allergy Unknown Verified 05/23/18 15:38 [From Bactrim] trimethoprim [From Bactrim] Allergy Unknown Verified 05/23/18 15:38 Surgical - Exam Vital Signs Temp Pulse Resp BP Pulse Ox 97.5 F L 80 16 142/63 100 05/28/18 07:42 05/28/18 07:42 05/28/18 07:42 05/28/18 07:42 05/28/18 07:42 Results - Labs Abnormal Lab Results - Last 24 Hours (Table) 05/28/18 Range/Units 07:46 POC Glucose (mg/dL) 110 H (75-99) mg/dL
--- NOTE | 2018-05-28 08:28 | P.PCN ---
Date of Procedure: 05/28/18 Description of Procedure: PREOPERATIVE DIAGNOSIS: Gastroesophageal reflux disease. POSTOPERATIVE DIAGNOSIS: Gastritis. Gastroesophageal reflux disease. OPERATION: Esophagogastroduodenoscopy with biopsies along antrum. SURGEON: Lavern Hendricks MD ANESTHESIA: MAC. INDICATIONS: The patient is a 68-year-old female who presents with a history of reflux disease. Benefits and risks of the procedure were described. Informed consent was obtained. DESCRIPTION: The patient was brought into the endoscopy suite and laid in the left lateral decubitus position. An Olympus gastroscope was passed along the posterior oropharynx down to the distal esophagus where the squamocolumnar junction was encountered at 38 cm from the incisors. The stomach was entered and no bile reflux was found. Additional findings are listed below. Biopsies with cold forceps were obtained of the antrum. The first through third portion of the duodenum was examined and unremarkable. Retroflexion of the scope confirmed Hill grade 2 lower esophageal valve. The squamocolumnar junction demonstrated LA grade B erosive esophagitis. The stomach was desufflated. The patient tolerated the procedure well. FINDINGS: Squamocolumnar junction 38 cm from the incisors. Diaphragmatic hiatus at 38 cm. Hill grade 2 lower esophageal valve. LA grade A erosive esophagitis. No active duodenitis. Chronic gastritis RECOMMENDATIONS: Upper endoscopy as needed.
--- NOTE | 2018-05-28 08:42 | P.PCN ---
Date of Procedure: 05/28/18 Description of Procedure: PREOPERATIVE DIAGNOSIS: History of colon polyps Colonoscopy screening. POSTOPERATIVE DIAGNOSIS: History of colon polyps Colonoscopy screening. Diverticulosis, scattered. OPERATION: Colonoscopy to the ileocecal valve and appendiceal orifice. SURGEON: Lavern Hendricks MD. ANESTHESIA: MAC. INDICATIONS: The patient is a 68-year-old female who presents for colonoscopy screening. Last colonoscopy over 5 years ago. Benefits and risks were described and informed consent was obtained. DESCRIPTION OF PROCEDURE: The patient had undergone Gatorade, MiraLAX and Dulcolax prep. She had been brought into the operating room and laid in the left lateral decubitus position. After adequate intravenous sedation, the rectum was examined with 2% lidocaine jelly. External hemorrhoids were encountered. The rectal tone was within normal limits. No lesions were palpated in the rectal vault. An Olympus colonoscope was advanced until the ileocecal valve and appendiceal orifice were clearly viewed. The prep was fair. The scope was removed with visualization of each mucosal fold. Scattered diverticulosis was encountered. No colonic polyps were found. No evidence of focal colitis was found. Retroflexion of the scope demonstrated grade 2 internal hemorrhoids without active bleeding or inflammation. The colon was desufflated. The patient had tolerated the procedure well. Withdrawal time was over 6 minutes. FINDINGS: Internal hemorrhoids, grade 2 External prolapsed hemorrhoids, grade 2 No arteriovenous malformations. Scattered diverticulosis was encountered. No adenomatous polyps. No focal colitis. RECOMMENDATIONS: Lower endoscopy in 5 years, 2023 Plan - Discharge Summary Discharge Rx Participant: No New Discharge Prescriptions: No Action Gemfibrozil [Lopid] 600 mg PO AC-BID Amitriptyline HCl [Elavil] 50 mg PO HS Pantoprazole Sodium 40 mg PO QAM Metoprolol Succinate [Toprol XL] 25 mg PO QAM Levothyroxine Sodium 125 mcg PO QAM Gabapentin [Neurontin] 300 mg PO TID FLUoxetine HCL [PROzac] 20 mg PO QAM Atorvastatin Calcium [Lipitor] 40 mg PO HS Aspirin 325 mg PO DAILY Cholecalciferol [Vitamin D3] 1,000 unit PO DAILY clonazePAM [KlonoPIN] 1 mg PO QAM Hydrochlorothiazide 25 mg PO QAM metFORMIN HCL ER [Glucophage Xr] 500 mg PO PC-SUPPER Multivitamins, Thera [Multivitamin (formulary)] 1 tab PO DAILY Discharge Medication List Amitriptyline HCl [Elavil] 50 mg PO HS 08/05/17 [History] FLUoxetine HCL [PROzac] 20 mg PO QAM 08/05/17 [History] Gabapentin [Neurontin] 300 mg PO TID 08/05/17 [History] Gemfibrozil [Lopid] 600 mg PO AC-BID 08/05/17 [History] Levothyroxine Sodium 125 mcg PO QAM 08/05/17 [History] Metoprolol Succinate [Toprol XL] 25 mg PO QAM 08/05/17 [History] Pantoprazole Sodium 40 mg PO QAM 08/05/17 [History] Aspirin 325 mg PO DAILY 05/23/18 [History] Atorvastatin Calcium [Lipitor] 40 mg PO HS 05/23/18 [History] Cholecalciferol [Vitamin D3] 1,000 unit PO DAILY 05/23/18 [History] Hydrochlorothiazide 25 mg PO QAM 05/23/18 [History] Multivitamins, Thera [Multivitamin (formulary)] 1 tab PO DAILY 05/23/18 [History] clonazePAM [KlonoPIN] 1 mg PO QAM 05/23/18 [History] metFORMIN HCL ER [Glucophage Xr] 500 mg PO PC-SUPPER 05/23/18 [History]
[2018-05-28 08:59] VITALS: BP 136/75; PULSE 68; RESP 18
== END | disposition home or self-care (01) ==
LOC: ORWHC2ENDO 07:19
PROVIDERS: ATTEND Surgery Plastic and Reconstructive Surgery
DX: Z12.11 Encounter for screening for malignant neoplasm of colon (principal); E07.9 Disorder of thyroid, unspecified; E11.9 Type 2 diabetes mellitus without complications; E78.5 Hyperlipidemia, unspecified; I10 Essential (primary) hypertension; K21.9 Gastro-esophageal reflux disease without esophagitis; K29.50 Unspecified chronic gastritis without bleeding; K64.4 Residual hemorrhoidal skin tags; K64.8 Other hemorrhoids; Z79.82 Long term (current) use of aspirin; K57.30 Diverticulosis of large intestine without perforation or abscess without bleeding; Z86.010 Personal history of colon polyps; Z86.73 Personal history of transient ischemic attack (TIA), and cerebral infarction without residual deficits; Z87.891 Personal history of nicotine dependence; Z88.1 Allergy status to other antibiotic agents; Z88.2 Allergy status to sulfonamides; Z90.49 Acquired absence of other specified parts of digestive tract; Z82.49 Family history of ischemic heart disease and other diseases of the circulatory system; Z80.49 Family history of malignant neoplasm of other genital organs; Z79.890 Hormone replacement therapy; Z79.899 Other long term (current) drug therapy
CPT/HCPCS: 88305; 43239; J2001; J2704; G0105

== ENCOUNTER → 2018-08-01 | Outpatient (CLI) | payer MEDICARE ==
[2018-08-01 12:41] LABS: HCT 36.2 % (34.0-46.0); HGB 11.7 gm/dL (11.4-16.0); Hypochromasia Slight; MCH 24.3 pg (25.0-35.0); MCHC 32.3 g/dL (31.0-37.0); MCV 75.3 fL (80.0-100.0); Microcytosis Slight; Platelet Count 311 k/uL (150-450); RBC 4.82 m/uL (3.80-5.40); RDW 15.5 % (11.5-15.5); WBC 7.4 k/uL (3.8-10.6)
[2018-08-01 12:56] LABS: Anion Gap 9 mmol/L; Blood Urea Nitrogen 10 mg/dL (7-17); Carbon Dioxide 28 mmol/L (22-30); Chloride 99 mmol/L (98-107); Sodium 136 mmol/L (137-145)
== END | disposition home or self-care (01) ==
LOC: LABPAT 12:04
PROVIDERS: ATTEND Internal Medicine Interventional Cardiology
DX: Z01.812 Encounter for preprocedural laboratory examination (principal); I25.10 Atherosclerotic heart disease of native coronary artery without angina pectoris
CPT/HCPCS: 36415; 80051; 82565; 84520; 85027

== ENCOUNTER 2018-08-06 06:48 | Day surgery (SDC) | payer MEDICARE ==
[2018-07-30 12:15] VITALS: BMI 28.0
[~2018-08-06 06:48] MED LIST changes: +ALPRAZolam 0.25 MG TAB PO PRN; +ASPIRIN 325 MG TAB PO ONE; -LACTATED RINGERS 1,000 ML IV SCH; -LIDOCAINE 1% 20 ML VIAL (10MG/ML) FOR IV START INTRADERMA PRN; -LIDOCAINE 1% INJ 10MG/ML (20 ML MDV) ONE; +NITROGLYCERIN SL TABS 0.4 MG TAB SUBLINGUAL PRN; -PROPOFOL 10 MG/ML 20 ML VIAL IV ONE; +SODIUM CHLORIDE 0.9% 1,000 ML in EMPTY BAG 1 BAG IV ONE
[2018-08-06] MEDS ORDERED: ATORVASTATIN 80 MG TAB PO ONE (07:00)
[2018-08-06 07:30] LABS: Glucose,Whole Blood 116 mg/dL (75-99)
[2018-08-06 07:52] LABS: Anion Gap 13 mmol/L; Blood Urea Nitrogen 11 mg/dL (7-17); Calcium 10.4 mg/dL (8.4-10.2); Carbon Dioxide 24 mmol/L (22-30); Chloride 100 mmol/L (98-107); Glucose 108 mg/dL (74-99); Potassium 3.7 mmol/L (3.5-5.1); Sodium 137 mmol/L (137-145)
[2018-08-06 07:55] LABS: HCT 37.6 % (34.0-46.0); HGB 12.5 gm/dL (11.4-16.0); MCH 24.4 pg (25.0-35.0); MCHC 33.2 g/dL (31.0-37.0); MCV 73.5 fL (80.0-100.0); Mean Platelet Volume 6.8; Microcytosis Slight; Platelet Count 327 k/uL (150-450); RBC 5.11 m/uL (3.80-5.40); RDW 15.5 % (11.5-15.5)
[2018-08-06] MEDS ORDERED: SODIUM CHLORIDE 0.9% 1,000 ML IV ONE (07:56)
[2018-08-06 08:07] LABS: Monocytes # (M) 0.45 k/uL (0-1.0); Neutrophils # (M) 3.55 k/uL (1.3-7.7); Neutrophils % (M) 71 %; Nucleated Red Blood Cells 0 /100 WBC (0-0); Total Cells Counted 100
[2018-08-06] MEDS ORDERED: MIDAZOLAM (PF) 2 MG/2 ML VIAL IVP ONE ×2 (08:55→12:20)
[2018-08-06] MEDS ORDERED: LIDOCAINE 1% INJ 10MG/ML (20 ML MDV) SQ ONE (08:58)
[2018-08-06] MEDS ORDERED: VERAPAMIL SYRINGE (5 MG/10 ML) INTRAARTER ONE (09:00)
[2018-08-06] MEDS ORDERED: BIVALIRUDIN BOLUS 250 MG/50 ML IV ONE (09:05)
[2018-08-06] MEDS ORDERED: BIVALIRUDIN 250 MG in SODIUM CHLORIDE 0.9% 50 ML IV ONE (09:06)
[2018-08-06] MEDS ORDERED: NITROGLYCERIN 1000MCG/10ML SYRINGE INTRACORON ONE (09:17)
[2018-08-06] MEDS ORDERED: IOPAMIDOL-370 100ML BTL INJ ONE (09:21)
[2018-08-06] MEDS ORDERED: HEPARIN SODIUM 1,000 UN/ML (10ML VL) ONE (09:25)
[2018-08-06] MEDS ORDERED: CLOPIDOGREL 75 MG TAB ONE ×2 (09:25→09:26)
[2018-08-06] MEDS ORDERED: ATROPINE SULFATE 0.1 MG/ML 10ML SYRINGE IV PRN (09:33)
[2018-08-06] MEDS ORDERED: MAG HYDROX/AL HYDROX/SIMETH 30 ML CUP PO PRN (09:33)
[2018-08-06] MEDS ORDERED: RX INFO: IV CONTRAST WAS GIVEN 1 EACH MISC MISCELLANE PRN (09:33)
[2018-08-06] MEDS ORDERED: CLOPIDOGREL 75 MG TAB PO ONE (09:35)
--- NOTE | 2018-08-06 10:14 | PTCA ---
PERCUTANEOUSTRANS CORORONARY ANGIOGRAPHY DATE OF SERVICE: 08/06/2018 PROCEDURE: PTCA and stenting of proximal RCA with a drug-eluting stent. PERFORMED BY: Dr. Tiara Cartagena. SEDATION: Moderate conscious sedation time was 30 minutes. Patient was administered Versed and Benadryl. His oxygen saturation, hemodynamics and EKG were monitored closely. CLINICAL INFORMATION: Mrs. Mellissa Mello is a 68-year-old lady with a known history of diabetes, hypertension, hyperlipidemia, and peripheral artery disease. She also has history of smoking but she quit a few years ago. She had a cardiac cath that was performed by me about a week ago at [facility], which revealed a tight lesion in the proximal RCA and mild irregularities in the left system. She was advised intervention of the RCA and aortogram with runoff and brought in for the procedure electively. I have advised that I will perform procedure from the right radial approach. She had a total occlusion of the left iliac and moderate disease in right iliac. PROCEDURE NOTE: Under local anesthesia and strict aseptic precautions, a 6-Solomon Islander introducer was placed in the right radial artery. I used a multipurpose B1 catheter to perform selective cannulation of the RCA. A run-through wire was used to cross the lesion. Predilatation was performed with a 15 mm 2.25 caliber Trek balloon. Subsequently, an 18 mm long 2.25 caliber Xience stent was deployed at 11 atmospheres. Patient did not have any chest pain or EKG changes. Excellent angiographic result was achieved without complication. The sheath was left in for an aortogram with runoff to be performed by Dr. Real. The sheath was sutured and. Patient received Angiomax bolus and infusion. She also received 600 mg of Plavix. Excellent angiographic result without complication was achieved and results were discussed with the patient and family. She will have an aortogram with runoff and will be discharged tomorrow if she remains stable. MMODL / IJN: [id number] /
[2018-08-06] MEDS: SODIUM CHLORIDE 0.9% 1,000 ML IV SCH ×2 (10:57→16:06)
[2018-08-06] MEDS ORDERED: IV FLUID CONTINUATION 1,000 ML IV ONE (12:05)
[2018-08-06] MEDS ORDERED: HEPARIN SODIUM 1,000 UN/ML (10ML VL) IV ONE (12:27)
[2018-08-06] MEDS ORDERED: IOPAMIDOL-250 100ML BTL INTRAARTER ONE (12:34)
[2018-08-06] MEDS ORDERED: SODIUM CHLORIDE 0.9% 1,000 ML IV SCH (12:45)
[2018-08-06 12:54] LABS: Glucose,Whole Blood 89 mg/dL (75-99)
--- NOTE | 2018-08-06 13:14 | AN ---
ANGIOGRAPHY REPORT DATE OF SERVICE: 08/06/2018 PERFORMING PHYSICIAN: Trevon Real MD, Ad Compositor. PROCEDURE PERFORMED: 1. An abdominal aortogram. 2. Bilateral lower extremity runoff. INDICATION: This is a 68-year-old female patient who sees Dr. Christiano Cartagena in the office on a regular basis with known history who was experiencing left leg intermittent claudication with previous Doppler study showing the possible occlusion of the left iliac artery. She was admitted to the hospital today and underwent a heart catheterization and stenting of the right coronary artery by Dr. Christiano Cartagena and the plan is to pursue with angiogram to assess her peripheral arterial disease. APPROACH: Right radial artery. COMPLICATION: None. LEVEL OF SEDATION: Moderate with sedation length of 14 minutes. PROCEDURE DESCRIPTION: Please refer to access prescription was performed during the heart catheterization earlier today by Dr. Christiano Cartagena. Anticoagulation was initiated using heparin, where the patient was given 5000 units of heparin IV. Subsequently, I did advanced an 0.035 wire to the descending aorta and I did advance 5-Welsh pigtail catheter down as well. The catheter was initially placed at the level of the renal arteries and it was advanced into above the bifurcation of the aorta to right and left common iliac arteries. I did an abdominal aortogram and bilateral lower extremities runoff using digital subtraction. The procedure was completed without any complication. SELECTIVE PERIPHERAL ANGIOGRAM: 1. AORTA: The aorta appeared to be ossified with mild disease only. 2. COMMON ILIAC ARTERIES: The right and left common iliac arteries are angiographically normal. 3. EXTERNAL ILIAC ARTERIES: The right external iliac artery is patent and the left external iliac artery is occluded right from the ostium. 4. INTERNAL ILIAC ARTERIES: The right and left internal are patent. 5. COMMON FEMORAL ARTERIES: The right common femoral artery is angiographically normal and the left common femoral artery appeared to have mild disease only. 6. PROFUNDA: Both profunda are patent. 7. SFA: Both SFA are patent. 8. POPLITEAL: Both popliteal arteries are patent below the knee. There are 3 vessel runoff below the knee bilaterally. CONCLUSION: Occluded left external iliac artery from the ostium and reconstitute just above the inguinal ligament. POSTPROCEDURE MANAGEMENT: The patient will benefit from a STEWARD/STEWARDESS BATH of the left external iliac artery in antegrade and/or retrograde technique. MMODL / IJN: [id number] /
[2018-08-06] MEDS ORDERED: ACETAMINOPHEN TAB 325 MG TAB PO PRN (15:35)
--- NOTE | 2018-08-06 15:36 | IR ---
Fluoroscopy HISTORY: Pain in left leg 1.7 minutes fluoroscopy time supplied to the referring clinician. 111 intraoperative C-arm images do cument the procedure. See dictated report from cardiology.
[2018-08-06] MEDS: GABAPENTIN 300 MG CAP PO SCH ×2 (18:11→21:13)
[2018-08-06 20:43] LABS: Glucose,Whole Blood 110 mg/dL (75-99)
[2018-08-06] MEDS ORDERED: AMITRIPTYLINE HCL 50 MG TAB PO SCH (21:00)
[2018-08-06] MEDS ORDERED: ATORVASTATIN 80 MG TAB PO SCH (21:00)
[2018-08-06] MEDS: CALCIUM POLYCARBOPHIL 625 MG TAB PO SCH (21:13)
[2018-08-07 06:20] LABS: Glucose,Whole Blood 104 mg/dL (75-99)
[2018-08-07] MEDS ORDERED: LEVOTHYROXINE 125 MCG TAB PO SCH (06:30)
[2018-08-07] MEDS ORDERED: PANTOPRAZOLE 40 MG TABLET PO SCH (07:30)
[2018-08-07] MEDS ORDERED: FENOFIBRATE 160 MG TAB PO SCH (07:30)
[2018-08-07 07:47] LABS: Anion Gap 7 mmol/L; Blood Urea Nitrogen 11 mg/dL (7-17); Calcium 9.6 mg/dL (8.4-10.2); Carbon Dioxide 26 mmol/L (22-30); Chloride 108 mmol/L (98-107); Glucose 100 mg/dL (74-99); Potassium 3.9 mmol/L (3.5-5.1); Sodium 141 mmol/L (137-145)
[2018-08-07 07:52] LABS: Basophils % (A) 1 %; Eosinophils # (A) 0.3 k/uL (0-0.7); Eosinophils % (A) 6 %; HCT 35.6 % (34.0-46.0); HGB 11.4 gm/dL (11.4-16.0); Hypochromasia Slight; Lymphocytes # (A) 1.2 k/uL (1.0-4.8); Lymphocytes % (A) 27 %; MCH 24.1 pg (25.0-35.0); MCV 75.4 fL (80.0-100.0); Mean Platelet Volume 7.1; Microcytosis Slight; Monocytes # (A) 0.6 k/uL (0-1.0); Monocytes % (A) 12 %; Neutrophils # (A) 2.3 k/uL (1.3-7.7); Neutrophils % (A) 51 %; Platelet Count 267 k/uL (150-450); RBC 4.73 m/uL (3.80-5.40); RDW 15.7 % (11.5-15.5); WBC 4.6 k/uL (3.8-10.6)
--- NOTE | 2018-08-07 08:00 | DS ---
DISCHARGE SUMMARY DATE OF ADMISSION: 08/06/2018 DATE OF DISCHARGE: 08/07/2018. DIAGNOSES: 1. Coronary artery disease with unstable angina. 2. Peripheral arterial disease. 3. History of hypertension and hyperlipidemia. PROCEDURES PERFORMED: 1. PTCA and stenting of proximal RCA with a drug-eluting stent by right radial approach. 2. Aortogram with runoff performed by Dr. Real and left external iliac artery is totally occluded at its origin. Mrs. Mellissa Mello was admitted to the hospital electively for PCI of RCA. Her cardiac cath was performed last week at [facility]. Following the procedure, she was advised to have elective PCI of RCA and also aortogram with runoff. Next, patient was brought in electively and underwent stenting of the right coronary artery from right radial approach with an 18 mm long 2.25 caliber Xience stent. Excellent angiographic result was achieved. Dr. Real performed an aortogram with runoff, which revealed external iliac occlusion on the left side with the right side being patent. There was distal reconstitution. He believes this chronic total occlusion can be addressed by percutaneous approach and he will do this electively. This was explained to the patient. This morning she is doing well without symptoms. Blood pressure is 120/70, pulse rate is 70 per minute. EKG reveals sinus with left bundle. Labs are pending. She is asymptomatic. Her right radial site is clean and dry. S1, S2 heard normally. Lungs are clear. Abdomen and lower extremity exam is unchanged. Plan is to discharge the patient after we check the labs. Discharge instructions regarding activity, diet and medications were given. I will see her in the office on August 12 at 9:15 a.m. MMKYLEGIH / LIZBETHN: [id number] /
[2018-08-07] MEDS: GABAPENTIN 300 MG CAP PO SCH (08:13)
[2018-08-07] MEDS: CALCIUM POLYCARBOPHIL 625 MG TAB PO SCH (08:14)
[2018-08-07 08:32] VITALS: BP 125/64; PULSE 66; RESP 17; TEMP 97.1
[2018-08-07] MEDS ORDERED: ASPIRIN 325 MG TAB PO SCH (09:00)
[2018-08-07] MEDS ORDERED: FLUoxetine HCL 20 MG CAP PO SCH (09:00)
[2018-08-07] MEDS ORDERED: LOSARTAN 25 MG TAB PO SCH (09:00)
[2018-08-07] MEDS ORDERED: ASPIRIN 81 MG PO SCH (09:00)
[2018-08-07] MEDS ORDERED: HYDROCHLOROTHIAZIDE 25 MG TAB PO SCH (09:00)
[2018-08-07] MEDS ORDERED: METOPROLOL SUCCINATE (ER) 25 MG TAB.ER.24H PO SCH (09:00)
[2018-08-07] MEDS ORDERED: CLOPIDOGREL 75 MG TAB PO SCH (09:00)
[2018-08-07] MEDS ORDERED: CHOLECALCIFEROL 1,000 UNIT TAB PO SCH (09:00)
[2018-08-07] MEDS ORDERED: clonazePAM 1 MG TAB PO SCH (09:00)
[2018-08-07] MEDS ORDERED: MULTIVITAMINS, THERA 1 EACH TAB PO SCH (09:00)
--- NOTE | 2018-08-07 19:57 | P.CRDCN ---
History of Present Illness Consult date: 08/07/18 Chief complaint: Peripheral arterial disease History of present illness: This is a pleasant 68-year-old female patient who does follow with Dr. KATT Cartagena in the office on regular basis with a past medical history significant for coronary artery disease, known carotid disease, diabetes, hypertension, and dyslipidemia, was admitted to the hospital yesterday by Dr. KATT Cartagena and underwent a heart catheterization which revealed severe disease involving the right coronary artery were the patient underwent successful stenting of the right coronary artery with a good angiographic results. The patient was experiencing left leg intermittent claudication. The symptoms of claudication is severe enough and interfering with her daily activities. She stated that she cannot walk more than 1 block before she stopped. She does not have any evidence of critical limb ischemia of the left leg including ulcers, and she does not have any resting pain. I did perform yesterday on the patient an abdominal aortogram and bilateral lower extremities runoff after Dr. Cartagena performed heart catheterization. The angiogram revealed occluded left external iliac artery from its ostium all the way to the left common femoral artery. Beside that the patient does have good fem-pop bilaterally, and good 3 vessels run off below the knee bilaterally as well. I discussed with the patient results in details and I did tell the patient that the next step will be is by performing percutaneous peripheral intervention of the left external iliac artery to be performed from the right groin approach. I discussed the details of the procedure in details as well and the patient was in 40 and agreement. Having said that, I am going to schedule the patient to undergo the procedure in the next few weeks. The past medical history include carotid disease, history of stroke, diabetes, hypertension, and dyslipidemia. Also she does have carotid disease. The patient used to smoke but she stated that quit smoking. Past Medical History Past Medical History: Cancer, COPD, CVA/TIA, Diabetes Mellitus, Fibromyalgia, GERD/Reflux, Hyperlipidemia, Hypertension, Memory Impairment, Osteoarthritis (OA), Pneumonia, Thyroid Disorder Additional Past Medical History / Comment(s): CVA 2007, forgetful sometimes, otherwise no other residual effects. ?blockage in right leg, seeing Dr Bishop about it today. Hx throat cancer with radiation treatment in 2014. Panic attacks. Diverticulosis. Chronic pain - generalized. Hx Pneumomia in 2007. History of Any Multi-Drug Resistant Organisms: None Reported Past Surgical History: Cholecystectomy, Orthopedic Surgery, Tonsillectomy Additional Past Surgical History / Comment(s): LEFT Carotid Endarectomy. BILATERAL ROTATOR CUFF REPAIR. Past Anesthesia/Blood Transfusion Reactions: No Reported Reaction Past Psychological History: Anxiety, Depression Smoking Status: Former smoker Past Alcohol Use History: Occasional Additional Past Alcohol Use History / Comment(s): QUIT SMOKING in 2009. Past Drug Use History: None Reported - Past Family History Mother Family Medical History: Cancer Additional Family Medical History / Comment(s): CERVICAL, Pancreatic [place]. Father Family Medical History: Myocardial Infarction ([place]) Brother(s) Family Medical History: Deep Vein Thrombosis (DVT) Medications and Allergies Home Medications Medication Instructions Recorded Confirmed Type Amitriptyline HCl [Elavil] 50 mg PO HS 08/05/17 07/30/18 History FLUoxetine HCL [PROzac] 20 mg PO QAM 08/05/17 07/30/18 History Gabapentin [Neurontin] 300 mg PO TID 08/05/17 07/30/18 History Levothyroxine Sodium 125 mcg PO QAM 08/05/17 07/30/18 History Metoprolol Succinate [Toprol XL] 37.5 mg PO QAM 08/05/17 07/30/18 History Pantoprazole Sodium 40 mg PO QAM 08/05/17 07/30/18 History Cholecalciferol [Vitamin D3 (25 2,000 unit PO DAILY 05/23/18 07/30/18 History Mcg = 1000 Iu)] Hydrochlorothiazide 25 mg PO QAM 05/23/18 07/30/18 History Multivitamins, Thera [Multivitamin 1 tab PO DAILY 05/23/18 07/30/18 History (formulary)] clonazePAM [KlonoPIN] 1 mg PO QAM 05/23/18 07/30/18 History Fiber Caps 2 cap PO BID 07/30/18 07/30/18 History Losartan Potassium [Cozaar] 25 mg PO DAILY 07/30/18 07/30/18 History Aspirin 81 mg PO DAILY #90 tab 08/07/18 Rx Atorvastatin [Lipitor] 80 mg PO HS #90 tab 08/07/18 Rx Clopidogrel [Plavix] 75 mg PO DAILY #90 tab 08/07/18 Rx Nitroglycerin Sl Tabs [Nitrostat] 0.4 mg SUBLINGUAL Q5M PRN #25 tab 08/07/18 Rx Allergies Allergy/AdvReac Type Severity Reaction Status Date / Time sulfamethoxazole Allergy Unknown Verified 07/30/18 11:54 [From Bactrim] trimethoprim [From Bactrim] Allergy Unknown Verified 07/30/18 11:54 Physical Exam Vitals: Vital Signs Temp Pulse Pulse Resp BP BP Pulse Ox 08/07/18 08:00 97.1 F L 66 17 125/64 99 08/07/18 04:00 97.8 F 62 16 122/61 96 08/06/18 23:39 63 15 127/56 97 08/06/18 21:10 97.7 F 59 L 16 125/59 98 08/06/18 20:00 16 Intake and Output 08/07/18 08/07/18 08/07/18 06:59 14:59 22:59 Intake Total 240 Balance 240 Intake: Oral 240 Other: # Voids 1 Weight 68.8 kg - Constitutional General appearance: no acute distress - Respiratory Respiratory: bilateral: CTA - Cardiovascular Rhythm: regular Heart sounds: normal: S1, S2 Results 08/07/18 06:12 08/07/18 06:12 CBC 08/07/18 Range/Units 06:12 WBC 4.6 (3.8-10.6) k/uL RBC 4.73 (3.80-5.40) m/uL Hgb 11.4 (11.4-16.0) gm/dL Hct 35.6 (34.0-46.0) % Plt Count 267 (150-450) k/uL Comprehensive Metabolic Panel 08/07/18 Range/Units 06:12 Sodium 141 (137-145) mmol/L Potassium 3.9 (3.5-5.1) mmol/L Chloride 108 H (98-107) mmol/L Carbon Dioxide 26 (22-30) mmol/L BUN 11 (7-17) mg/dL Creatinine 0.52 (0.52-1.04) mg/dL Glucose 100 H (74-99) mg/dL Calcium 9.6 (8.4-10.2) mg/dL Intake and Output 08/07/18 08/07/18 08/07/18 06:59 14:59 22:59 Intake Total 240 Balance 240 Intake: Oral 240 Other: # Voids 1 Weight 68.8 kg 08/07/18 06:12 08/07/18 06:12 Assessment and Plan Assessment: Assessment #1 severe peripheral arterial disease with occluded left external iliac artery #2 severe coronary artery disease and status post PCI of the RCA #3 multiple comorbid conditions including diabetes, hypertension, dyslipidemia Plan #1 the patient underwent a peripheral angiogram which revealed the above finding #2 she will be scheduled to undergo a HEAD TURBINE OPERATOR of the left external iliac artery from a right groin approach #3 follow-up with the patient Thank you for allowing us participate in her care
== END 2018-08-07 10:05 | disposition home or self-care (01) ==
LOC: CATHCVL 06:48 → 3SCARD 14:42 → CATHCVL 08-07 10:05
PROVIDERS: ATTEND Internal Medicine Interventional Cardiology
DX: I25.110 Atherosclerotic heart disease of native coronary artery with unstable angina pectoris (principal); E11.51 Type 2 diabetes mellitus with diabetic peripheral angiopathy without gangrene; I70.92 Chronic total occlusion of artery of the extremities; I10 Essential (primary) hypertension; E78.5 Hyperlipidemia, unspecified; I70.212 Atherosclerosis of native arteries of extremities with intermittent claudication, left leg; K57.90 Diverticulosis of intestine, part unspecified, without perforation or abscess without bleeding; F32.9 Major depressive disorder, single episode, unspecified; G89.29 Other chronic pain; F41.9 Anxiety disorder, unspecified; Z90.49 Acquired absence of other specified parts of digestive tract; I65.23 Occlusion and stenosis of bilateral carotid arteries; J44.9 Chronic obstructive pulmonary disease, unspecified; E78.00 Pure hypercholesterolemia, unspecified; Z86.73 Personal history of transient ischemic attack (TIA), and cerebral infarction without residual deficits; M79.7 Fibromyalgia; Z85.819 Personal history of malignant neoplasm of unspecified site of lip, oral cavity, and pharynx; Z87.891 Personal history of nicotine dependence; Z92.3 Personal history of irradiation; Z87.01 Personal history of pneumonia (recurrent); Z82.49 Family history of ischemic heart disease and other diseases of the circulatory system; Z79.82 Long term (current) use of aspirin; Z79.899 Other long term (current) drug therapy; Z79.84 Long term (current) use of oral hypoglycemic drugs; Z79.890 Hormone replacement therapy; Z98.890 Other specified postprocedural states; K21.9 Gastro-esophageal reflux disease without esophagitis; E07.9 Disorder of thyroid, unspecified; M19.90 Unspecified osteoarthritis, unspecified site; Z88.2 Allergy status to sulfonamides; Z88.1 Allergy status to other antibiotic agents
CPT/HCPCS: 36200; 75625; 75716; 80048 ×2; 85025 ×2; C9600; C1887; C1769 ×5; C1725; C1874; C1894; J2001; J1644; J0583; Q9966; Q9967; J2250

== ENCOUNTER 2018-08-25 06:20 | Day surgery (SDC) | payer MEDICARE ==
[2018-08-20 14:57] VITALS: BMI 28.0
[2018-08-25] MEDS ORDERED: ALPRAZolam 0.25 MG TAB PO PRN (06:32)
[2018-08-25] MEDS ORDERED: ASPIRIN 325 MG TAB PO STA (06:32)
[2018-08-25] MEDS ORDERED: SODIUM CHLORIDE 0.9% 1,000 ML in EMPTY BAG 1 BAG IV ONE (06:32)
[2018-08-25 06:57] LABS: Glucose,Whole Blood 105 mg/dL (75-99)
[2018-08-25] MEDS ORDERED: MIDAZOLAM (PF) 2 MG/2 ML VIAL IV ONE (07:43)
[2018-08-25 07:44] LABS: Basophils % (A) 1 %; Eosinophils # (A) 0.3 k/uL (0-0.7); Eosinophils % (A) 5 %; HCT 37.5 % (34.0-46.0); HGB 12.3 gm/dL (11.4-16.0); Lymphocytes # (A) 1.1 k/uL (1.0-4.8); Lymphocytes % (A) 21 %; MCH 24.2 pg (25.0-35.0); MCHC 32.9 g/dL (31.0-37.0); MCV 73.4 fL (80.0-100.0); Mean Platelet Volume 6.4; Microcytosis Slight; Monocytes # (A) 0.6 k/uL (0-1.0); Monocytes % (A) 10 %; Neutrophils # (A) 3.3 k/uL (1.3-7.7); Neutrophils % (A) 60 %; Platelet Count 293 k/uL (150-450); RBC 5.11 m/uL (3.80-5.40); RDW 14.9 % (11.5-15.5); WBC 5.5 k/uL (3.8-10.6)
[2018-08-25] MEDS ORDERED: LIDOCAINE 1% INJ 10MG/ML (20 ML MDV) SQ ONE (07:45)
[2018-08-25 07:46] LABS: African American GFR (CKD) >90 (>60 ml/min/1.73 sqM); Anion Gap 11 mmol/L; Blood Urea Nitrogen 6 mg/dL (7-17); Calcium 9.9 mg/dL (8.4-10.2); Carbon Dioxide 28 mmol/L (22-30); Chloride 94 mmol/L (98-107); Glucose 100 mg/dL (74-99); Potassium 3.3 mmol/L (3.5-5.1); Sodium 133 mmol/L (137-145)
[2018-08-25] MEDS: MIDAZOLAM (PF) 2 MG/2 ML VIAL IV ONE ×2 (07:50→08:20)
[2018-08-25] MEDS ORDERED: NITROGLYCERIN 1000MCG/10ML SYRINGE INTRAARTER ONE (08:32)
[2018-08-25] MEDS ORDERED: IOPAMIDOL-250 100ML BTL INTRAARTER ONE (09:05)
[2018-08-25] MEDS ORDERED: NITROGLYCERIN SL TABS 0.4 MG TAB SUBLINGUAL PRN (09:06)
[2018-08-25] MEDS ORDERED: SODIUM CHLORIDE 0.9% 1,000 ML IV SCH (09:15)
--- NOTE | 2018-08-25 09:37 | LTR ---
August 25, 2018 Re: Mellissa Mello Dear Dr. Yang: Ms. Mellissa Mello underwent successful stenting of the left external iliac artery with good angiographic results and without any complication. I want to thank you for allowing me to participate in her care and please do not hesitate to call if you have any question or concern. Sincerely, Trevon Real MD MMNAVIL / LIZBETHN: [id number] /
--- NOTE | 2018-08-25 09:52 | AN ---
ANGIOGRAPHY REPORT PERCUTANEOUS PERIPHERAL INTERVENTION: DATE OF SERVICE: August 25, 2018. PERFORMING PHYSICIAN: Trevon Real MD. PROCEDURE PERFORMED: 1. Selective left external iliac artery, left common femoral artery, and right common femoral artery angiogram. 2. Successful crossing chronic total occlusion of the left external iliac artery. 3. Successful balloon angioplasty and stenting of the left external iliac artery using 7 x 80 Zilver PTX drug-coated stent as well as a 7 x 19 mm Omnilink balloon expandable stent with excellent angiographic results. INDICATION: This is a 68-year-old female patient who was experiencing left leg intermittent claudication and underwent a peripheral angiogram which revealed the occlusion of the left external iliac artery from the bifurcation of common iliac artery all the way to the inguinal ligament. She was brought today to undergo an intervention of the left external iliac artery. COMPLICATION: None. LEVEL OF SEDATION: Moderate with sedation length of 72 minutes. PROCEDURE DESCRIPTION: After obtaining informed consent, the patient was brought to the cardiac laborer orchard. The right common femoral artery was cannulated using micropuncture technique, the micropuncture wire passed easily then I placed a 6-Bulgarian sheath in the right common femoral artery. After that, I did go up and over where I did exchange my 11 cm sheath into 55 cm 6-Bulgarian Raabe sheath using 0.035 stiff Glidewire with 5-Bulgarian Rim catheter. After that, the tip of the long sheath was positioned in the proximal left common iliac artery just above the bifurcation. After that I was able to cross the chronic total occlusion of the left external iliac artery using a 0.018 CXI catheter with 0.018 gold-tipped Glidewire. I did inject through the SFA to prove that I was in the true lumen. After that, I did balloon angioplasty and subsequently successfully stenting of the left external iliac artery. Initially I did stenting using 7 x 80 mm Zilver PTX drug-coated stent and then too I extend that using another short balloon expandable stent, which was mm balloon expandable stent, which was Omnilink. The following angiogram showed good angiographic results and the procedure was completed without any complication. POSTPROCEDURE MANAGEMENT: 1. Dual antiplatelet therapy. 2. Risk factors modifications. 3. Follow up with the patient. MMODL / IJN: [id number] /
[2018-08-25] MEDS ORDERED: ACETAMINOPHEN TAB 500 MG TAB PO PRN (10:33)
[2018-08-25] MEDS ORDERED: ATROPINE SULFATE 0.1 MG/ML 10ML SYRINGE ONE (11:48)
[2018-08-25 12:08] LABS: Glucose,Whole Blood 108 mg/dL (75-99)
[2018-08-25 17:13] LABS: Glucose,Whole Blood 130 mg/dL (75-99)
[2018-08-25] MEDS: GABAPENTIN 300 MG CAP PO SCH ×2 (18:29→21:17)
[2018-08-25] MEDS: CALCIUM POLYCARBOPHIL 625 MG TAB PO SCH (19:59)
[2018-08-25] MEDS ORDERED: ATORVASTATIN 80 MG TAB PO SCH (21:00)
[2018-08-25] MEDS ORDERED: AMITRIPTYLINE HCL 50 MG TAB PO SCH (21:00)
[2018-08-25 21:34] LABS: Glucose,Whole Blood 153 mg/dL (75-99)
[2018-08-26 05:59] LABS: Glucose,Whole Blood 101 mg/dL (75-99)
[2018-08-26 06:28] LABS: Basophils % (A) 1 %; Eosinophils # (A) 0.3 k/uL (0-0.7); Eosinophils % (A) 5 %; HCT 34.9 % (34.0-46.0); HGB 11.2 gm/dL (11.4-16.0); Lymphocytes # (A) 0.9 k/uL (1.0-4.8); Lymphocytes % (A) 16 %; MCH 24.3 pg (25.0-35.0); MCHC 32.1 g/dL (31.0-37.0); MCV 75.6 fL (80.0-100.0); Mean Platelet Volume 6.5; Microcytosis Slight; Monocytes # (A) 0.5 k/uL (0-1.0); Monocytes % (A) 9 %; Neutrophils # (A) 3.6 k/uL (1.3-7.7); Neutrophils % (A) 66 %; Platelet Count 271 k/uL (150-450); RBC 4.61 m/uL (3.80-5.40); RDW 15.5 % (11.5-15.5); WBC 5.4 k/uL (3.8-10.6)
[2018-08-26] MEDS ORDERED: LEVOTHYROXINE 125 MCG TAB PO SCH (06:30)
[2018-08-26 06:34] LABS: African American GFR (CKD) >90 (>60 ml/min/1.73 sqM); Anion Gap 6 mmol/L; Blood Urea Nitrogen 8 mg/dL (7-17); Calcium 9.3 mg/dL (8.4-10.2); Carbon Dioxide 30 mmol/L (22-30); Chloride 101 mmol/L (98-107); Glucose 100 mg/dL (74-99); Potassium 3.7 mmol/L (3.5-5.1); Sodium 137 mmol/L (137-145)
[2018-08-26] MEDS ORDERED: PANTOPRAZOLE 40 MG TABLET PO SCH (07:30)
[2018-08-26] MEDS: CALCIUM POLYCARBOPHIL 625 MG TAB PO SCH (08:45)
[2018-08-26] MEDS: GABAPENTIN 300 MG CAP PO SCH (08:47)
[2018-08-26] MEDS ORDERED: LOSARTAN 25 MG TAB PO SCH (09:00)
[2018-08-26] MEDS ORDERED: ASPIRIN 81 MG PO SCH (09:00)
[2018-08-26] MEDS ORDERED: MULTIVITAMINS, THERA 1 EACH TAB PO SCH (09:00)
[2018-08-26] MEDS ORDERED: FLUoxetine HCL 20 MG CAP PO SCH (09:00)
[2018-08-26] MEDS ORDERED: HYDROCHLOROTHIAZIDE 25 MG TAB PO SCH (09:00)
[2018-08-26] MEDS ORDERED: clonazePAM 1 MG TAB PO SCH (09:00)
[2018-08-26] MEDS ORDERED: CHOLECALCIFEROL 1,000 UNIT TAB PO SCH (09:00)
[2018-08-26] MEDS ORDERED: CLOPIDOGREL 75 MG TAB PO SCH (09:00)
[2018-08-26] MEDS ORDERED: METOPROLOL SUCCINATE (ER) 25 MG TAB.ER.24H PO SCH (09:00)
[2018-08-26 09:07] VITALS: BP 140/65; PULSE 70; RESP 20; TEMP 97.5
--- NOTE | 2018-08-26 12:43 | P.PN ---
Subjective Progress Note Date: 08/26/18 Discharge note This is a pleasant 68-year-old female who was admitted to the hospital by Dr. Perez, she was experiencing left leg intermittent claudication and underwent a peripheral angiogram which revealed occlusion of the left external iliac artery from the bifurcation of the common iliac artery all the way to the inguinal ligaments. She was brought to the hospital to undergo an intervention of the left external iliac artery. She underwent successful balloon angioplasty and stenting of the left external iliac artery yesterday. Patient was seen and examined this morning, felt well, no complaints. Right groin is soft, no evidence of any hematoma, excellent peripheral pulses bilaterally. Blood pressure 140/60 with a heart rate in the 70s, 94% on room air. White blood cell count 5.4, hemoglobin 11.2, platelet count 271. Sodium 137, potassium 3.7, BUN 8 and creatinine 0.5. Objective - Vital Signs Vital signs: Vital Signs Temp 97.5 F L 08/26/18 08:00 Pulse 70 08/26/18 08:00 Resp 20 08/26/18 08:00 BP 140/65 08/26/18 08:00 Pulse Ox 94 L 08/26/18 08:00 Intake & Output 08/25/18 08/26/18 08/26/18 18:59 06:59 18:59 Intake Total 610 800 100 Balance 610 800 100 Weight 71.5 kg Intake: IV 150 Oral 460 800 100 Other: Voiding Method Toilet # Voids 1 1 - Exam PHYSICAL EXAMINATION: GENERAL: 68-year-old female in no acute distress at the time of my examination HEENT: Head is atraumatic, normocephalic. Pupils equal, round. Sclera anicteric. Conjunctiva are clear. Mucous membranes of the mouth are moist. Neck is supple. There is no elevated jugular venous pressure. No carotid bruit is heard. HEART EXAMINATION: Heart S1, S2 normal. No murmur or gallop heard. CHEST EXAMINATION: Lungs are clear to auscultation and precussion. No chest wall tenderness is noted on palpation or with deep breathing. ABDOMEN: Soft, nontender. Bowel sounds are heard. No organomegaly noted. EXTREMITIES: 2+ peripheral pulses with no evidence of peripheral edema and no calf tenderness noted. Right groin soft, no evidence of any hematoma. NEUROLOGIC patient is awake, alert and oriented 3 . . - Labs CBC & Chem 7: 08/26/18 05:50 08/26/18 05:50 Labs: Abnormal Lab Results - Last 24 Hours (Table) 08/25/18 08/25/18 08/26/18 Range/Units 17:03 21:33 05:50 Hgb (11.4-16.0) gm/dL MCV (80.0-100.0) fL MCH (25.0-35.0) pg Lymphocytes # (1.0-4.8) k/uL Glucose 100 H (74-99) mg/dL POC Glucose (mg/dL) 130 H 153 H (75-99) mg/dL 08/26/18 08/26/18 Range/Units 05:50 05:57 Hgb 11.2 L (11.4-16.0) gm/dL MCV 75.6 L (80.0-100.0) fL MCH 24.3 L (25.0-35.0) pg Lymphocytes # 0.9 L (1.0-4.8) k/uL Glucose (74-99) mg/dL POC Glucose (mg/dL) 101 H (75-99) mg/dL Assessment and Plan Plan: Assessment and plan #1 status post angioplasty and stenting of the left external iliac artery #2 hypertension #3 hyperlipidemia #4 diabetes #5 hypothyroidism #6 history of prior CVA #7 CAD with prior PCI #8 prior history of smoking Plan Patient will be discharged home today. We'll make her a follow-up appointment to see Dr. Perez in the office post discharge. She will be discharged home on dual antiplatelet therapy in the form of aspirin and Plavix. Rest of her medications have also been resumed. DNP note has been reviewed, I agree with a documented findings and plan of care. Patient was seen and examined.
--- NOTE | 2018-08-26 14:29 | IR ---
EXAMINATION TYPE: IR stent intravas non coronary DATE OF EXAM: 08/25/2018 CLINICAL HISTORY: Left leg pain. TECHNIQUE: Fluoroscopy. COMPARISON: None. FINDINGS: Fluoroscopic guidance was provided during lower extremity angiogram procedure performed by Dr. Real. A total of 24.8 minutes of fluoroscopic time was utilized during the procedure and 18 emma e runs are acquired. Please refer to procedure note for further details as I was not present nor perf ormed procedure. IMPRESSION: As Above.
== END 2018-08-26 11:19 | disposition home or self-care (01) ==
LOC: CATHCVL 06:20 → 3SCARD 09:19 → CATHCVL 08-26 11:19
PROVIDERS: ATTEND Internal Medicine Interventional Cardiology
DX: I70.212 Atherosclerosis of native arteries of extremities with intermittent claudication, left leg (principal); I70.92 Chronic total occlusion of artery of the extremities; E11.51 Type 2 diabetes mellitus with diabetic peripheral angiopathy without gangrene; Z79.84 Long term (current) use of oral hypoglycemic drugs; I10 Essential (primary) hypertension; I25.10 Atherosclerotic heart disease of native coronary artery without angina pectoris; Z87.891 Personal history of nicotine dependence; E78.5 Hyperlipidemia, unspecified; E03.9 Hypothyroidism, unspecified; E78.00 Pure hypercholesterolemia, unspecified; I65.23 Occlusion and stenosis of bilateral carotid arteries; Z98.890 Other specified postprocedural states; Z86.73 Personal history of transient ischemic attack (TIA), and cerebral infarction without residual deficits; Z95.5 Presence of coronary angioplasty implant and graft; Z85.21 Personal history of malignant neoplasm of larynx; Z92.3 Personal history of irradiation; Z79.02 Long term (current) use of antithrombotics/antiplatelets; Z79.82 Long term (current) use of aspirin; Z79.890 Hormone replacement therapy; Z79.899 Other long term (current) drug therapy
CPT/HCPCS: 37221; 85347; 80048 ×2; 85025 ×2; C1894 ×2; C1769 ×7; C1876; C1725; C1887; C1874; J2001; J1644; Q9966; J2250

== ENCOUNTER → 2019-05-12 | Outpatient (CLI) | payer MEDICARE ==
[2019-05-12 14:21] LABS: African American GFR (CKD) >90 (>60 ml/min/1.73 sqM); Blood Urea Nitrogen 8 mg/dL (7-17); Non-African American GFR(CKD) >90 (>60 ml/min/1.73 sqM)
--- NOTE | 2019-05-12 16:15 | CT ---
EXAMINATION TYPE: CT angio neck DATE OF EXAM: 05/12/2019 HISTORY: Right carotid stenosis. History of squamous cell carcinoma of the neck. COMPARISON: CT soft tissue neck dated 07/27/2013 and carotid ultrasound dated 07/28/2017. CT DLP: 265.9 mGycm. Automated Exposure Control for Dose Reduction was Utilized. TECHNIQUE: CTA scan of the neck is performed with IV Contrast, patient injected with 65 mL of Isovue 370, axial images are obtained, coronal and sagittal reformatted images are reviewed. Three-D recons tructed images are created on an independent workstation and reviewed. FINDINGS: Carotid/Vascular Structures: There is approximately 60% stenosis of the right carotid bulb secondary to calcific atheromatous plaquing. There is eccentric plaquing of the proximal right internal carotid artery and tortuosity, however no greater than 50% stenosis is seen. On the left there is minimal no nhemodynamically significant atheromatous plaquing of the left proximal internal carotid artery and e xternal carotid artery (less than 50% luminal narrowing). There is conventional three-vessel branch pattern of the aortic arch. The vertebral arteries are codo minant and patent. Visualized portions of the intracranial vasculature are patent with atherosclerosi s of the cavernous portion and supraclinoid portions of the internal carotid arteries noted. Other: Mild centrilobular emphysematous changes of the lung apices. Mild multilevel degenerative marti ges of the spine is straightening of usual cervical lordosis that may be on the basis of muscular str ain/spasm or patient positioning. Redemonstration of encephalomalacia of the left frontal lobe as see n on the prior MRI of 07/28/2018 with ex vacuo dilatation of the anterior horn of the left lateral yoshi tricle. This is only partially visualized. The right submandibular gland appears surgically absent. S ymmetric atrophy of the parotid glands. IMPRESSION: Degree of stenosis within the right internal carotid artery was overestimated on the screening ultras ound of 08/05/2017. There is approximately 60% stenosis of the right carotid bulb and a short segment measuring approximately 4 mm and no other hemodynamically significant stenosis of the major arterial vasculature of the neck.
== END | disposition home or self-care (01) ==
LOC: RADCTMAIN 13:35
PROVIDERS: ATTEND Surgery
DX: I65.21 Occlusion and stenosis of right carotid artery (principal)
CPT/HCPCS: 82565; 84520; 70498; 36415; Q9967

== ENCOUNTER → 2019-10-20 | Outpatient (CLI) | payer MEDICARE ==
[2019-10-20 11:15] LABS: Basophils # (A) 0.1 k/uL (0-0.2); Basophils % (A) 1 %; Eosinophils # (A) 0.2 k/uL (0-0.7); Eosinophils % (A) 3 %; HCT 40.6 % (34.0-46.0); HGB 13.2 gm/dL (11.4-16.0); Lymphocytes # (A) 1.4 k/uL (1.0-4.8); Lymphocytes % (A) 20 %; MCH 26.6 pg (25.0-35.0); MCHC 32.6 g/dL (31.0-37.0); MCV 81.5 fL (80.0-100.0); Mean Platelet Volume 7.1; Monocytes # (A) 0.5 k/uL (0-1.0); Monocytes % (A) 8 %; Neutrophils # (A) 4.6 k/uL (1.3-7.7); Neutrophils % (A) 67 %; Platelet Count 251 k/uL (150-450); RBC 4.98 m/uL (3.80-5.40); RDW 13.8 % (11.5-15.5); WBC 6.8 k/uL (3.8-10.6)
[2019-10-20 11:34] LABS: African American GFR (CKD) >90 (>60 ml/min/1.73 sqM); Anion Gap 10 mmol/L; Blood Urea Nitrogen 7 mg/dL (7-17); Carbon Dioxide 28 mmol/L (22-30); Chloride 97 mmol/L (98-107); Non-African American GFR(CKD) >90 (>60 ml/min/1.73 sqM); Potassium 3.7 mmol/L (3.5-5.1); Sodium 135 mmol/L (137-145)
== END | disposition home or self-care (01) ==
LOC: LABPAT 10:28
PROVIDERS: ATTEND Surgery
DX: Z01.818 Encounter for other preprocedural examination (principal); I65.29 Occlusion and stenosis of unspecified carotid artery
CPT/HCPCS: 36415; 80051; 82565; 84520; 85025

== ENCOUNTER 2019-11-03 05:58 | Day surgery (SDC) | payer MEDICARE ==
[2019-10-27 13:25] VITALS: BMI 30.5
[~2019-11-03 05:58] MED LIST changes: +ALPRAZolam 0.5 MG TAB PO PRN; -ASPIRIN 325 MG TAB PO ONE; +ASPIRIN 325 MG TAB PO STA; +CLOPIDOGREL 75 MG TAB PO STA
[2019-11-03 06:35] LABS: Glucose,Whole Blood 109 mg/dL (75-99)
[2019-11-03 06:37] VITALS: RESP 16; TEMP 98.3
[2019-11-03] MEDS ORDERED: MIDAZOLAM 2 MG/2 ML VIAL IV ONE (07:35)
[2019-11-03] MEDS ORDERED: LIDOCAINE 1% INJ 10MG/ML (20 ML MDV) SQ ONE (07:39)
[2019-11-03] MEDS ORDERED: IOPAMIDOL-250 100ML BTL INTRAARTER ONE ×2 (07:59)
--- NOTE | 2019-11-03 08:24 | P.OP ---
Date of Procedure: 11/03/19 Preoperative Diagnosis: 1. History of TIA. 2. Bilateral ICA stenosis Postoperative Diagnosis: Same Procedure(s) Performed: 1. Arch aortogram with bilateral selective carotid angiograms Anesthesia: local, other (Moderate sedation 20 minutes) Surgeon: James James Estimated Blood Loss (ml): 5 Pathology: none sent Condition: stable Disposition: other (Outpatient) Indications for Procedure: 69-year-old female with history of TIA which involved speech and memory presented to the office for evaluation prior to [facility] and was noted to have significant stenosis on ultrasound greater than 70%. She does have a history of neck radiation for thyroid cancer and therefore she was sent for a CT angiogram of the head and neck. On CT angiogram is noted that the stenosis was less than 70% and more like 50-60%. She then had a repeat ultrasound which once again demonstrated high velocities. She presents today for catheter directed angiogram. Operative Findings: Aortic arch is patent without any significant stenosis at the brachiocephalic takeoff or left carotid artery and subclavian artery. Right common carotid artery is patent with some calcification and plaque noted at the carotid bulb and internal carotid artery measuring approximately 50% stenosis correlating with the CT angiogram. Left common carotid artery is widely patent and previous patch angioplasty is noted she is also widely patent with no significant stenosis noted in the patch or internal carotid artery. Flow to the brain has noted bilaterally with no evidence of aneurysms or stenosis within the intracranial arterial system. Description of Procedure: After written informed consent was obtained from the patient all risks benefits and competitions were described the patient is brought to the [facility] and laid in a supine position. The area of the groins were prepped and draped in usual sterile fashion. Patient was Versed and morphine for moderate conscious sedation and followed with continuous pulse ox and EKG monitoring. Utilizing ultrasound the right common femoral artery was visualized and shown to be patent without any significant calcification or plaque. A multipurpose needle was then utilized and Seldinger technique for placement of a 5-Kenyan sheath. 035 wire was then placed into the aorta to the arch followed by pigtail catheter. Arch angiogram was then obtained. Guidewire was then placed removing the pigtail catheter followed by a JB2 catheter and access to the brachiocephalic artery was obtained and wire was then placed into the common carotid artery and the catheter was advanced for selective angiogram. Selective angiograms were then obtained of the right carotid system. JB2 catheter was then withdrawn and placed into the left common carotid artery and selective angiogram was once again obtained. All guidewires and catheters were then removed sheath was removed and pressure was placed for hemostasis. The patient all G are well and was sent back to PACU for recovery. Plan - Discharge Summary Discharge Rx Participant: No New Discharge Prescriptions: No Action Amitriptyline HCl [Elavil] 50 mg PO HS Pantoprazole Sodium 60 mg PO QAM Metoprolol Succinate [Toprol XL] 37.5 mg PO QAM Levothyroxine Sodium 125 mcg PO QAM Gabapentin [Neurontin] 300 mg PO TID FLUoxetine HCL [PROzac] 20 mg PO QAM Cholecalciferol [Vitamin D3 (25 Mcg = 1000 Iu)] 2,000 unit PO DAILY clonazePAM [KlonoPIN] 1 mg PO QAM hydroCHLOROthiazide 25 mg PO QAM Multivitamins, Thera [Multivitamin (formulary)] 1 tab PO DAILY Fiber Caps 2 cap PO BID Atorvastatin [Lipitor] 80 mg PO HS #90 tab Clopidogrel [Plavix] 75 mg PO DAILY #90 tab Aspirin 81 mg PO DAILY #30 chew metFORMIN HCL 1,000 mg PO 1800 #0 Discharge Medication List Amitriptyline HCl [Elavil] 50 mg PO HS 08/05/17 [History] FLUoxetine HCL [PROzac] 20 mg PO QAM 08/05/17 [History] Gabapentin [Neurontin] 300 mg PO TID 08/05/17 [History] Levothyroxine Sodium 125 mcg PO QAM 08/05/17 [History] Metoprolol Succinate [Toprol XL] 37.5 mg PO QAM 08/05/17 [History] Pantoprazole Sodium 60 mg PO QAM 08/05/17 [History] Cholecalciferol [Vitamin D3 (25 Mcg = 1000 Iu)] 2,000 unit PO DAILY 05/23/18 [History] Multivitamins, Thera [Multivitamin (formulary)] 1 tab PO DAILY 05/23/18 [History] clonazePAM [KlonoPIN] 1 mg PO QAM 05/23/18 [History] hydroCHLOROthiazide 25 mg PO QAM 05/23/18 [History] Fiber Caps 2 cap PO BID 07/30/18 [History] Atorvastatin [Lipitor] 80 mg PO HS #90 tab 08/07/18 [Rx] Clopidogrel [Plavix] 75 mg PO DAILY #90 tab 08/07/18 [Rx] Aspirin 81 mg PO DAILY #30 chew 08/26/18 [Rx] metFORMIN HCL 1,000 mg PO 1800 #0 08/26/18 [Rx] Follow up Appointment(s)/Referral(s): James James DO [STAFF PHYSICIAN] - 2 Weeks Discharge Disposition: HOME SELF-CARE
[2019-11-03 11:55] VITALS: BP 126/56; PULSE 72
--- NOTE | 2019-11-03 12:46 | IR ---
EXAMINATION TYPE: IR angio aortic arch DATE OF EXAM: 11/03/2019 CLINICAL HISTORY: Carotid stenosis. TECHNIQUE: Fluoroscopy. COMPARISON: None. FINDINGS: Fluoroscopic guidance was provided during carotid angiogram procedure performed by Dr. Alonzo mcneil. A total of 4.6 minute of fluoroscopic time was utilized during the procedure and multiple cine runs are acquired. Please refer to procedure note for further details as I was not present for jairo sam. IMPRESSION: As Above.
== END 2019-11-03 13:00 | disposition home or self-care (01) ==
LOC: CATHCVL 05:58
PROVIDERS: ATTEND Surgery
DX: I65.23 Occlusion and stenosis of bilateral carotid arteries (principal); E89.0 Postprocedural hypothyroidism; E11.9 Type 2 diabetes mellitus without complications; I10 Essential (primary) hypertension; Z86.73 Personal history of transient ischemic attack (TIA), and cerebral infarction without residual deficits; Z98.62 Peripheral vascular angioplasty status; Z98.890 Other specified postprocedural states; Z92.3 Personal history of irradiation; Z79.899 Other long term (current) drug therapy; Z79.82 Long term (current) use of aspirin; Z79.890 Hormone replacement therapy; Z79.02 Long term (current) use of antithrombotics/antiplatelets; Z79.84 Long term (current) use of oral hypoglycemic drugs; Z88.2 Allergy status to sulfonamides; Z90.49 Acquired absence of other specified parts of digestive tract; Z85.01 Personal history of malignant neoplasm of esophagus; Z85.850 Personal history of malignant neoplasm of thyroid; Z82.49 Family history of ischemic heart disease and other diseases of the circulatory system; Z83.3 Family history of diabetes mellitus; Z80.9 Family history of malignant neoplasm, unspecified
CPT/HCPCS: 36223; C1769 ×4; C1894; J2250; J2001; Q9966

== ENCOUNTER → 2020-11-21 | Outpatient (CLI) | payer MEDICARE ==
[2020-11-21 13:21] LABS: African American GFR (CKD) >90 (>60 ml/min/1.73 sqM); Blood Urea Nitrogen 9 mg/dL (7-17); Non-African American GFR(CKD) >90 (>60 ml/min/1.73 sqM)
--- NOTE | 2020-11-21 14:29 | CT ---
EXAMINATION TYPE: CT angio neck DATE OF EXAM: 11/21/2020 HISTORY: carotid stenosis COMPARISON: CTA neck May 12, 2019 CT DLP: 293.1 mGycm. Automated Exposure Control for Dose Reduction was Utilized. TECHNIQUE: CTA scan of the neck is performed with IV Contrast, patient injected with 65 mL of Isovue 370, axial images are obtained, coronal and sagittal reformatted images are reviewed. 3D reconstruct ed images are created on an independent workstation and reviewed. FINDINGS: Carotid/Vascular Structures: Normal 3 vessel origin from the aortic arch redemonstrated . Mild periph eral plaque. Mild to moderate mixed plaque at origin of 3 great vessels without significant stenosis. Normal origin right common carotid artery from the right brachiocephalic artery. Mild to moderate mi xed plaque along the course of the common carotid arteries bilaterally without significant stenosis. The right carotid bulb there is persistent moderate to severe mixed plaque causing stenosis approachi ng but under 50%. Similar to stenosis in the right external carotid artery. There is more mild to mod erate calcified plaque in the proximal left internal carotid artery just after carotid bulb similar t o prior without greater than 50% stenosis. Mild calcified plaque in the left external carotid artery without significant stenosis. Moderate calcified plaque distal internal carotid artery supraclinoid s egment bilaterally redemonstrated without significant stenosis. Codominant vertebral arteries patent to basilar junction. No significant focal stenosis or aneurysmal change in the vertebral arteries bilaterally. Other: Mild underlying emphysematous change is redemonstrated. Persistent [id number] multilevel disc space narrowing and spurring in the cervical spine. Absent or atrophic right submandibular gland redemonstrated. IMPRESSION: Moderate to severe plaque right carotid bulb into proximal right internal carotid artery causes stenosis near 50%. No significant progression or worsening from prior CTA Neck study. NASCET criteria was used in interpretation of this exam?
== END | disposition home or self-care (01) ==
LOC: RADCTMAIN 12:29
PROVIDERS: ATTEND Surgery
DX: I65.23 Occlusion and stenosis of bilateral carotid arteries (principal)
CPT/HCPCS: 82565; 84520; 70498; 36415; Q9967